=== PATIENT | male | born 1970 | race Caucasian/White ===

== ENCOUNTER 2020-12-26 20:22 | Emergency (ER) | payer MEDICARE, MEDICAID, SELFPAY ==
--- NOTE | ~2020-12-26 | CT_ITS ---
EXAMINATION: CT ABDOMEN AND PELVIS WITHOUT CONTRAST CLINICAL INFORMATION: Hematuria with abdominal pain COMPARISON: 10/25/2019 TECHNIQUE: Multidetector volumetric imaging was performed from the superior aspect of the liver through the pubic symphysis. Sagittal and coronal reformatted images were obtained on the technologist's workstation. This CT examination was performed using dose optimization techniques as appropriate, variously including the following: *Automated exposure control *Adjustment of mA and/or kV according to patient size (this includes techniques or standardized protocols for targeted exams where dose is matched to indication/reason for exam; i.e. extremities or head) *Use of iterative reconstruction technique DLP: 1040 mGy-cm FINDINGS: The lack of intravenous contrast limits evaluation of the solid visceral organs including the liver, spleen, pancreas, and kidneys. There is also streak artifact from hardware and the patient was scanned with his arms over his chest casting more artifact. LUNG BASES: Right lower lobe atelectasis. Bilateral gynecomastia. Healed remote bilateral rib fractures. LIVER, GALLBLADDER, AND BILIARY TREE: Limited non-contrast evaluation is normal. No gross focal hepatic lesion. Normal liver size and contour. No gross biliary ductal dilation. The gallbladder is unremarkable with no evidence of radiopaque gallstones, gallbladder wall thickening, or obvious pericholecystic inflammatory changes. PANCREAS: Limited non-contrast evaluation is normal. No jean paul-pancreatic fluid. SPLEEN: Limited non-contrast evaluation is normal. ADRENAL GLANDS: Normal; no adrenal mass. KIDNEYS AND URETERS: Limited non-contrast evaluation is normal. No hydronephrosis, hydroureter, or calculi seen. No perinephric stranding. GASTROINTESTINAL TRACT: Small bowel and colon are non-dilated. No bowel wall thickening. No pericolonic inflammatory changes to suggest colitis or diverticulitis. ABDOMINAL WALL: No hernia seen. LYMPH NODES: No pathologically enlarged lymph nodes in the abdomen or pelvis. VASCULAR: Normal caliber abdominal aorta. BLADDER: Unremarkable. PELVIC VISCERA: Normal noncontrast appearance of the prostate and seminal vesicles. There are left pelvic phleboliths. OSSEOUS STRUCTURES: Extensive degenerative changes of the thoracolumbar spine with multilevel fusion hardware. Status post ORIF of the right hip. Chronic right inferior pubic ramus fracture. CT/CT abdomen pelvis wo con IMPRESSION: No radiopaque urolithiasis. Limited study. No etiology for hematuria or abdominal pain.
[2020-12-26 20:30] VITALS: BP 132/79; PULSE 100; PULSE 95; RESP 20; TEMP 36.9; O2SAT 97; O2SAT 98; BMI 25.8
--- NOTE | 2020-12-26 21:27 | ED.MALEGU ---
HPI - Male Genitourinary General Chief complaint: Urogenital-Male Stated complaint: BLOOD IN URINE Time Seen by Provider: 12/26/20 21:26 Source: patient, RN notes reviewed, old records reviewed and other (Caregiver) Mode of arrival: EMS Limitations: physical limitation History of Present Illness HPI Narrative: This is a 50-year-old male who live in a correction with past medical history of cerebral palsy, seizure, with communication barrier due to mental retardation, patient came in from a correction reportedly has been having bloody urine with abdominal pain x1 day, no other associated symptoms is reported, nothing relieves the pain or make it worse is reported either, reviewing history patient never had a similar presentation before. Patient in the emergency department appeared comfortable talkative appear at his baseline known to our ED staff. Related Data Allergies Allergy/AdvReac Type Severity Reaction Status Date / Time lorazepam [From ATIVAN] Allergy Unknown RASH Verified 12/26/20 20:40 Review of Systems Review of Systems: All other systems are reviewed and are negative Constitutional: Reports as per HPI and Reports no additional constitutional complaints Eyes: Reports as per HPI and Reports no additional eye complaints Reports system reviewed and no additional complaints, except as documented Cardiovascular: Reports as per HPI and Reports no additional cardiovascular complaints Respiratory: Reports as per HPI and Reports no additional respiratory complaints Gastrointestinal: Reports as per HPI and Reports no additional gastrointestinal complaints Genitourinary: Reports no additional female genitourinary complaints Musculoskeletal: Reports no additional musculoskeletal complaints Skin/Breast: Reports system reviewed and no additional complaints, except as docu Psychiatric: Reports no additional psychiatric complaints Endocrine: Reports no additional endocrine complaints Hematologic/Lymphatic: Reports no additional hematologic/lymphatic complaints Allergic/Immunologic: Reports no additional allergic/immunologic complaints Reports system reviewed and no additional complaints, except as documented and Reports Abnormal speech present [facility] Past Medical History Medical History Anxiety and depression Arthritis Cerebral palsy Constipation Depressive disorder Dysphagia Generalized anxiety disorder Hyperlipemia Hypernatremia Mood disorder Ocular motor apraxia syndrome Osteoarthritis Osteoporosis Psoriasis Scoliosis Seizure disorder SIADH (syndrome of inappropriate ADH production) Vitamin D deficiency Surgical History History of spinal fusion Social History Social History Alcohol intake: never Smoking Status: Never smoker Smoked in Last 30 Days: No Use of substances other than those prescribed or required for medical reasons: No Advance Directives: No Physical Exam Vital Signs: Vital Signs: Last Vital Signs Temp 98.2 F 12/26/20 22:46 Pulse 87 12/26/20 22:46 Resp 18 12/26/20 22:46 BP 147/78 H 12/26/20 22:46 Pulse Ox 100 12/26/20 22:46 Body Mass Index 25.8 Vital signs have been reviewed as normal and appeared to be correct. Blood pressure in the high range. Heart rate normal. Respiration rate normal. Temperature normal. Oxygen saturation normal. Appearance: Alert.No acute distress. Head: Normal external exam. Normocephalic. Atraumatic. No Kowalski signs noted. No raccoon eyes noted Eyes: PERRLA. EOMI. Conjunctiva and sclera normal. Eyelids normal. ENT: EAC normal. TM's Normal. Pharynx normal. Uvula midline. Moist mucous membranes. No trismus noted. No drooling noted. No muffled voice noted. Neck: Normal inspection. Neck supple. FROM. No adenopathy. Thyroid Normal. No meningeal signs. No neck mass noted. CVS: Normal heart rate and rhythm. Heart sound normal. No murmurs noted. Pulses normal throughout. Respiratory: No respiratory distress. Painless inspiration. Breath sounds normal. No wheezes/rales/rhonchi noted. Chest nontender. No accessory muscle usage noted or decreased air movement noted. Abdomen: Soft and nontender. Bowel sounds normal in all 4 quadrants. No distention noted. No organomegaly noted. No visible injury noted. Back: No CVA tenderness. Full range of motion noted. Skin: Skin warm and dry. Normal skin color. Normal skin turgor. No rashes/lesions/lacerations noted. Extremities: No lower extremity edema. Extremities exhibit normal range of motion. Extremities nontender. Neuro: No motor deficit. No sensory deficit. Reflexes normal. 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 Urine was obtained using straight cath urine showed no RBCs, CT of the abdomen and pelvis confirmed no urogenital obstructive pathology. Patient in the emergency room is acting at his normal baseline no acute distress, will discharge the patient back to detention with follow-up with urologist if symptoms reoccur. MDM - Male Genitourinary Lab Data Attestation: I reviewed the patient's lab results. Result diagrams: 12/26/20 21:55 12/26/20 21:55 Labs: Lab Results 12/26/20 12/26/20 12/26/20 Range/Units 21:55 21:55 22:03 WBC 6.4 (4.8-10.8) X10*3/uL RBC 4.30 L (4.60-5.80) X10*6/uL Hgb 14.3 (14.0-18.0) g/dl Hct 41.5 L (42-52) % MCV 96.5 (80-98) fL MCH 33.3 H (27.0-33.0) pg MCHC 34.5 (31.0-36.0) g/dl RDW 12.8 (11.0-16.0) % Plt Count 189 (160-400) X10*3/uL MPV 10.3 (9.4-12.4) fL Immature Gran % (Auto) 0.2 (0.0-0.4) % Neut % (Auto) 44.3 L (45-73) % Lymph % (Auto) 41.7 H (20-40) % [place] % (Auto) 11.9 H (2-11) % Eos % (Auto) 1.6 (0-4) % Baso % (Auto) 0.3 (0-2) % Lymph # (Auto) 2.7 (1.2-4.9) X10*3/uL [place] # (Auto) 0.8 (0.1-1.2) X10*3/uL Eos # (Auto) 0.1 (0.0-0.4) X10*3/uL Baso # (Auto) 0.0 (0.0-0.2) X10*3/uL Abs Immat Gran (auto) 0.01 (0.00-0.03) X10*3/uL Absolute Neuts (auto) 2.8 (2.0-8.3) X10*3/uL Absolute Nucleated RBC 0.000 (0.0-0.012) X10*3/uL Nucleated RBC % (auto) 0.0 (0.0-0.2) /100WBC Sodium 134 L (135-145) mmol/L Potassium 4.4 (3.3-5.1) mmol/L Chloride 100 (96-108) mmol/L Carbon Dioxide 23 (22-29) mmol/L Anion Gap 15 (12-20) BUN 15 (9-16) mg/dL Creatinine 0.67 (0.5-1.4) mg/dL Estim Creat Clear Calc 129.0 Estimated GFR > 60 Random Glucose 98 (60-115) mg/dL Calcium 8.5 (8.4-10.2) mg/dL Total Bilirubin 0.2 (0.0-1.0) mg/dL Direct Bilirubin < 0.2 (0.0-0.5) mg/dL AST 20 (5-37) U/L ALT 13 (0-40) U/L Alkaline Phosphatase 62 (39-117) U/L Total Protein 7.0 (6.5-8.0) g/dL Albumin 3.9 (3.5-5.0) g/dL Lipase 80 H (8-78) U/L Urine Color YELLOW Urine Appearance CLEAR Urine pH 7.0 (5.0-8.0) Ur Specific [place] 1.015 (1.005-1.025) Urine Protein NEG (NEG-TRACE) MG/DL Urine Glucose (UA) NEG (NEG) MG/DL Urine Ketones NEG (NEG) MG/DL Urine Blood NEG (NEG) Urine Nitrite NEG (NEG) Ur Leukocyte Esterase NEG (NEG) Imaging Data CT scan - abdomen: Radiologist's impression: No radiopaque urolithiasis. Limited study. No etiology for hematuria or abdominal pain. Discharge Plan Discharge Clinical Impression: Encounter for medical screening examination Patient Disposition: Home, Self-Care Instructions: Normal Exam (ED) Referrals: Parish Kendall MD [Physician] - 2 days
[2020-12-26] MEDS: 0.9 % Sodium Chloride 1,000 ML 999 ML IVCONT (21:59)
[2020-12-26 22:00] LABS: MANUAL DIFF FLAG NO
[2020-12-26 22:04] LABS: Basophils Percent Auto 0.3 % (0-2); Eosinophils Absolute Auto 0.1 X10*3/uL (0.0-0.4); Eosinophils Percent Auto 1.6 % (0-4); Hematocrit 41.5 % (42-52); Hemoglobin 14.3 g/dl (14.0-18.0); Imm Gran Abs Auto 0.01 X10*3/uL (0.00-0.03); Imm Gran Pct Auto 0.2 % (0.0-0.4); Lymphocytes Absolute Auto 2.7 X10*3/uL (1.2-4.9); Lymphocytes Percent Auto 41.7 % (20-40); Mean Corpuscular HGB Conc 34.5 g/dl (31.0-36.0); Mean Corpuscular Hemoglobin 33.3 pg (27.0-33.0); Mean Corpuscular Volume 96.5 fL (80-98); Mean Platelet Volume 10.3 fL (9.4-12.4); Monocytes Absolute Auto 0.8 X10*3/uL (0.1-1.2); Monocytes Percent Auto 11.9 % (2-11); Neutrophils Absolute Auto 2.8 X10*3/uL (2.0-8.3); Neutrophils Percent Auto 44.3 % (45-73); Platelet Count 189 X10*3/uL (160-400); Red Cell Distribution Width 12.8 % (11.0-16.0); White Blood Count 6.4 X10*3/uL (4.8-10.8)
[2020-12-26 22:14] LABS: Glucose Urine UA NEG (NEG); Leukocyte Esterase Urine NEG (NEG); Nitrite Urine NEG (NEG); Specific Gravity - Urine 1.015 (1.005-1.025); Urine Blood NEG (NEG); Urine Ketones NEG (NEG); Urine Protein NEG (NEG-TRACE)
[2020-12-26 22:15] LABS: Appearance Urine CLEAR; Color Urine YELLOW
[2020-12-26 22:36] LABS: Alanine Aminotransferase 13 U/L (0-40); Albumin Level 3.9 g/dL (3.5-5.0); Alkaline Phosphatase 62 U/L (39-117); Anion Gap 15 (12-20); Aspartate Amino Transferase 20 U/L (5-37); Bilirubin Direct < 0.2 mg/dL (0.0-0.5); Bilirubin Total 0.2 mg/dL (0.0-1.0); Blood Urea Nitrogen 15 mg/dL (9-16); Calcium 8.5 mg/dL (8.4-10.2); Carbon Dioxide 23 mmol/L (22-29); Chloride 100 mmol/L (96-108); Estimated Glomerular Filt Rate > 60; Glucose Random 98 mg/dL (60-115); Lipase 80 U/L (8-78); Potassium 4.4 mmol/L (3.3-5.1); Sodium 134 mmol/L (135-145)
[2020-12-26 22:46] VITALS: BP 147/78; PULSE 87; RESP 18; TEMP 36.8; O2SAT 100
--- NOTE | 2020-12-26 23:50 | PC.NURSE ---
PT CHANGED INTO HIS OWN CLOTHES. PLACED IN WHEELCHAIR TO TRANSFER.[facility] CALLED FOR DISCHARGE-[facility] CALLED.
== END 2020-12-27 00:17 | disposition home or self-care (01) ==
PROVIDERS: Emergency Provider Emergency Medicine
DX: R31.9 Hematuria, unspecified (principal); R10.9 Unspecified abdominal pain; Z79.899 Other long term (current) drug therapy
CPT/HCPCS: 36415; 74176; 80048; 80076; 81003; 83690; 85025; 96360; 99284

== ENCOUNTER → 2021-01-01 11:39 | Outpatient (BNVA) | payer MEDICARE, MEDICAID, SELFPAY | PROVIDERS: Visit Provider Urology | CPT/HCPCS: Q3014 ==

== ENCOUNTER → 2021-07-06 10:13 | Outpatient (BNVA) | payer MEDICARE, MEDICAID, SELFPAY | PROVIDERS: Visit Provider Urology | DX: R31.0 Gross hematuria (principal) | CPT/HCPCS: 52000; 99212 ==

== ENCOUNTER → 2021-09-07 09:35 | Outpatient (BNVA) | payer MEDICARE, MEDICAID, SELFPAY | PROVIDERS: Visit Provider Urology | DX: N40.1 Benign prostatic hyperplasia with lower urinary tract symptoms (principal); N13.8 Other obstructive and reflux uropathy | CPT/HCPCS: 51798; 99212 ==

== ENCOUNTER → 2022-03-11 09:57 | Outpatient (BNVA) | payer MEDICARE, MEDICAID, SELFPAY | PROVIDERS: Visit Provider Urology | DX: N40.1 Benign prostatic hyperplasia with lower urinary tract symptoms (principal); N13.8 Other obstructive and reflux uropathy | CPT/HCPCS: Q3014 ==

== ENCOUNTER → 2022-09-13 14:30 | Outpatient (BNVA) | payer MEDICARE, MEDICAID, SELFPAY | PROVIDERS: Visit Provider Urology | DX: N40.1 Benign prostatic hyperplasia with lower urinary tract symptoms (principal); N13.8 Other obstructive and reflux uropathy; R31.0 Gross hematuria | CPT/HCPCS: Q3014 ==

== ENCOUNTER → 2023-03-16 11:00 | Outpatient (BNVA) | payer MEDICARE, MEDICAID, SELFPAY | PROVIDERS: Visit Provider Urology | DX: N40.1 Benign prostatic hyperplasia with lower urinary tract symptoms (principal); N13.8 Other obstructive and reflux uropathy | CPT/HCPCS: 51798; 99212 ==

== ENCOUNTER 2023-09-13 09:08 | Outpatient (AMB) | payer MEDICARE, MEDICAID, SELFPAY ==
--- NOTE | 2023-09-13 09:08 | MHC.OFFVIS ---
Intake Intake Visit Reasons: 6m follow up Intake Note: Patient is Present for Telephone Follow Up Urology Med: Finasteride, Tamsulosin Antibiotic Allergy: None Blood Thinner: None Pharamcy: Center Allergies lorazepam [From ATIVAN] Allergy (Unknown, Verified 09/13/23 09:10) RASH HPI HPI Comments History of Present Illness Details Corby is a pleasant male. He is a resident of [facility]. He is here for the following urologic conditions - gross hematuria - lower urinary tract symptoms - weak stream and frequent urination Telemedicine Evaluation 15 min Consultation [employer] Eufemia Video attempted Stable with minimal incontinence episodes Continue current medications Continue current fluid management Lower urinary tract symptoms Improved with medications Last PVR 0 Remains on combination therapy with finasteride and tamsulosin Timed voiding Q 3 that is effective Gross hematuria Presentation emergency room - May 2021 In [facility] Imaging - 01/10 CT scan normal Initial presentation with nocturia and noted to have frequent urination Cystoscopy - 07/10 [facility] Medical History Ocular motor apraxia syndrome Psoriasis Depressive disorder Mood disorder Generalized anxiety disorder Anxiety and depression Vitamin D deficiency SIADH (syndrome of inappropriate ADH production) Hyperlipemia Hypernatremia Scoliosis Osteoporosis Osteoarthritis Arthritis Dysphagia Constipation Seizure disorder Cerebral palsy Surgical History History of spinal fusion Social History Alcohol intake: never Review of Systems Const All systems reviewed & are unremarkable except as noted in HPI and below Reports no additional complaints Resp Reports no additional complaints GI Reports no additional complaints Reports as per HPI Musc Reports no additional complaints Physical Exam Telemedicine evaluation Appropriate responses Regular breathing rate and rhythm HEENT Head: Yes normal to inspection Ears: hearing grossly normal bilaterally Eyes General: appearance normal, both eyes and all related structures Neck Neck: Yes normal visual inspection Chest Chest palpation & inspection: normal inspection of the chest Resp Effort & Inspection: normal respiratory effort and able to speak in complete sentences Assessment & Plan Assessment & Plan (1) BPH w urinary obs/LUTS: Code(s): N40.1 - Benign prostatic hyperplasia with lower urinary tract symptoms; N13.8 - Other obstructive and reflux uropathy (2) Gross hematuria: Code(s): R31.0 - Gross hematuria Plan Six month follow-up Medications: Refilled finasteride 5 mg PO DAILY 90 tabs 3RF 90 days N13.8 - Other obstructive and reflux uropathy, N40.1 - Benign prostatic hyperplasia with lower urinary tract symptoms tamsulosin 0.4 mg PO BEDTIME 90 caps 3RF 90 days N13.8 - Other obstructive and reflux uropathy, N40.1 - Benign prostatic hyperplasia with lower urinary tract symptoms Patient Instructions: Imaging studies, laboratory and physical exam results were discussed and reviewed in detail. No major barriers to patient understanding were identified. An opportunity to ask questions regarding the treatment plan was provided. All questions were answered. The patient expressed understanding and agreement with the above treatment plan. The patient is aware they should contact our office by phone for worsening of their current condition or the appearance of new urologic symptoms. Compliance is encouraged with any medications and followup testing that is ordered. It is a privilege to participate in the urologic care of your patient. If you have any questions or concerns regarding treatment for the above conditions, or other urologic issues, please do not hesitate to contact me. The office telephone contact is [phone]. This note is constructed using voice recognition software. While every effort has been made to ensure accuracy plumber cub errors may have been included. Yours sincerely, Dr Parish Kendall MD, [facility] - Urology Providers of Expert, Compassionate Care for the Genitourinary System Telehealth Telehealth Location of provider rendering services: practice address Location of patient: address on file Patient Identification confirmed using: Name, : Yes Telehealth method: voice only Patient verbally consented to treatment: Yes Patient verbally consented to billing insurance company: Yes Patient informed of any privacy concerns related to visit: Yes Coding Level of Care Code Tele Est Pt Level 3 (81318) Diagnoses BPH w urinary obs/LUTS N40.1; N13.8 Gross hematuria R31.0
== END 2023-09-13 13:58 | disposition home or self-care (01) ==
LOC: HO.HUSH 09:08
PROVIDERS: PCP Internal Medicine; Visit Provider Urology
DX: N40.1 Benign prostatic hyperplasia with lower urinary tract symptoms (principal); N13.8 Other obstructive and reflux uropathy; R31.0 Gross hematuria
CPT/HCPCS: 99442

== ENCOUNTER → 2023-09-13 09:08 | Outpatient (BNVA) | payer MEDICARE, MEDICAID, SELFPAY | PROVIDERS: PCP Internal Medicine; Visit Provider Urology ==

== ENCOUNTER 2024-03-14 09:48 | Outpatient (AMB) | payer MEDICARE, MEDICAID, SELFPAY ==
--- NOTE | 2024-03-14 09:57 | MHC.OFFVIS ---
Intake Visit Reasons: 6 mo follow up Intake Note: Patient is Present for Follow Up Urology Medication: Finasteride, Tamsulosin Antibiotic Allergies:None Blood Thinners:None Allergies lorazepam [From ATIVAN] Allergy (Unknown, Verified 03/14/24 09:59) RASH HPI Comments Details: Corby is a pleasant male. He is a resident [facility]. He is here for the following urologic conditions - gross hematuria - lower urinary tract symptoms - weak stream and frequent urination Accompanied by staff from [facility] PVR low Combination therapy Stable with minimal incontinence episodes Continue current medications Continue current fluid management Continue timed voiding Lower urinary tract symptoms Improved with medications Last PVR 0 Remains on combination therapy with finasteride and tamsulosin Timed voiding Q 3 that is effective Gross hematuria Presentation emergency room - May 2021 In [facility] Imaging - 01/10 CT scan normal Initial presentation with nocturia and noted to have frequent urination Cystoscopy - 07/10 [facility] Medical History Ocular motor apraxia syndrome Psoriasis Depressive disorder Mood disorder Generalized anxiety disorder Anxiety and depression Vitamin D deficiency SIADH (syndrome of inappropriate ADH production) Hyperlipemia Hypernatremia Scoliosis Osteoporosis Osteoarthritis Arthritis Dysphagia Constipation Seizure disorder Cerebral palsy Surgical History History of spinal fusion Social History Alcohol intake: never Review of Systems Const Denies chills and Denies fever(s) Card Reports no additional complaints and Denies syncope Resp Denies cough GI Denies abdominal pain and Denies heartburn Reports as per HPI and Denies change in libido Neuro Denies syncope Psych Denies change in libido Endo Denies change in libido Physical Exam Const General: cooperative, healthy appearing, comfortable and no acute distress Orientation/consciousness: patient oriented x3 HEENT Face and sinus: Yes normal facial exam Mouth: moist mucous membranes Neck Neck: Yes normal visual inspection, Yes full ROM and Yes trachea midline Chest Chest palpation & inspection: normal inspection of the chest Resp Effort & Inspection: normal respiratory effort, able to speak in complete sentences and no respiratory distress GI Inspection: Yes normal to inspection Back/Spine/Pelvis Cervical Spine: normal cervical lordosis Thoracic/Lumbar Spine: thoracic and lumbar spine normal to inspection Skin General skin exam: no rashes or lesions noted Neuro General: patient oriented x3, gait normal, tone normal and moves all extremities Extrem General: Yes normal to inspection and Yes capillary refill normal Assessment & Plan Assessment & Plan (1) BPH w urinary obs/LUTS: Code(s): N40.1 - Benign prostatic hyperplasia with lower urinary tract symptoms; N13.8 - Other obstructive and reflux uropathy Category: Medical Plan Six month follow-up tele Patient Instructions: Imaging studies, laboratory and physical exam results were discussed and reviewed in detail. No major barriers to patient understanding were identified. An opportunity to ask questions regarding the treatment plan was provided. All questions were answered. The patient expressed understanding and agreement with the above treatment plan. The patient is aware they should contact our office by phone for worsening of their current condition or the appearance of new urologic symptoms. Compliance is encouraged with any medications and followup testing that is ordered. It is a privilege to participate in the urologic care of your patient. If you have any questions or concerns regarding treatment for the above conditions, or other urologic issues, please do not hesitate to contact me. The office telephone contact is [phone]. This note is constructed using voice recognition software. While every effort has been made to ensure accuracy teacher citizenship errors may have been included. Yours sincerely, Dr Parish Kendall MD, [facility] - Urology Providers of Expert, Compassionate Care for the Genitourinary System Coding Level of Care Code Est Pt Level 3 (10379) Complex EM visit Add On G2211 Diagnoses BPH w urinary obs/LUTS N40.1; N13.8
== END 2024-03-14 10:30 | disposition home or self-care (01) ==
PROVIDERS: PCP Internal Medicine; Visit Provider Urology
DX: N40.1 Benign prostatic hyperplasia with lower urinary tract symptoms (principal); N13.8 Other obstructive and reflux uropathy
CPT/HCPCS: 99213; G2211

== ENCOUNTER → 2024-03-14 09:48 | Outpatient (BNVA) | payer MEDICARE, MEDICAID, SELFPAY | PROVIDERS: PCP Internal Medicine; Visit Provider Urology | DX: N40.1 Benign prostatic hyperplasia with lower urinary tract symptoms (principal); N13.8 Other obstructive and reflux uropathy | CPT/HCPCS: 99212 ==

== ENCOUNTER 2024-09-13 10:25 | Outpatient (AMB) | payer MEDICARE, MEDICAID, SELFPAY ==
--- NOTE | 2024-09-13 10:26 | MHC.OFFVIS ---
Intake Visit Reasons: 6m follow up Intake Note: Patient is present for BPH Telephone follow up Urology Med: Finasteride, Tamsulosin Antibiotic Allergy: None Blood Thinner: None Jewelry Sales Associate Required: No Summer Camp Counselor: Summer Camp Counselor Present Accompanied by: nursing staff Allergies lorazepam [From ATIVAN] Allergy (Unknown, Verified 09/13/24 10:26) RASH HPI Comments Details: Corby is a pleasant male. He is a [facility]. He is here for the following urologic conditions - gross hematuria - lower urinary tract symptoms - weak stream and frequent urination Telemedicine Evaluation 15 min Consultation Doximity Eufemia Video attempted By report from caregiver everything has remained stable Stable with minimal incontinence episodes Continue current medications Continue current fluid management Continue timed voiding Lower urinary tract symptoms Improved with medications Last PVR 0 Remains on combination therapy with finasteride and tamsulosin Timed voiding Q 3 that is effective Gross hematuria Presentation emergency room - May 2021 In [facility] Imaging - 01/10 CT scan normal Initial presentation with nocturia and noted to have frequent urination Cystoscopy - 07/10 [facility] Medical History Ocular motor apraxia syndrome Psoriasis Depressive disorder Mood disorder Generalized anxiety disorder Anxiety and depression Vitamin D deficiency SIADH (syndrome of inappropriate ADH production) Hyperlipemia Hypernatremia Scoliosis Osteoporosis Osteoarthritis Arthritis Dysphagia Constipation Seizure disorder Cerebral palsy Surgical History History of spinal fusion Social History Alcohol intake: never Review of Systems Const All systems reviewed & are unremarkable except as noted in HPI and below Reports no additional complaints Resp Reports no additional complaints GI Reports no additional complaints Reports as per HPI Musc Reports no additional complaints Physical Exam Telemedicine evaluation Appropriate responses Regular breathing rate and rhythm HEENT Head: Yes normal to inspection Ears: hearing grossly normal bilaterally Eyes General: appearance normal, both eyes and all related structures Neck Neck: Yes normal visual inspection Chest Chest palpation & inspection: normal inspection of the chest Resp Effort & Inspection: normal respiratory effort and able to speak in complete sentences Telehealth Telehealth Telehealth Platform: [employer] Location of provider rendering services: practice address Location of patient: address on file Patient Identification confirmed using: Name, : Yes Telehealth method: voice only Patient verbally consented to treatment: Yes Patient verbally consented to billing insurance company: Yes Patient informed of any privacy concerns related to visit: Yes Minutes spent on Phone/Video with Pt.: 15 Assessment & Plan Assessment & Plan (1) BPH w urinary obs/LUTS: Code(s): N40.1 - Benign prostatic hyperplasia with lower urinary tract symptoms; N13.8 - Other obstructive and reflux uropathy Category: Medical Plan Six-month follow-up office Patient Instructions: Imaging studies, laboratory and physical exam results were discussed and reviewed in detail. No major barriers to patient understanding were identified. An opportunity to ask questions regarding the treatment plan was provided. All questions were answered. The patient expressed understanding and agreement with the above treatment plan. The patient is aware they should contact our office by phone for worsening of their current condition or the appearance of new urologic symptoms. Compliance is encouraged with any medications and followup testing that is ordered. It is a privilege to participate in the urologic care of your patient. If you have any questions or concerns regarding treatment for the above conditions, or other urologic issues, please do not hesitate to contact me. The office telephone contact is [phone]. This note is constructed using voice recognition software. While every effort has been made to ensure accuracy adjustment clerk errors may have been included. Yours sincerely, Dr Parish Kendall MD, [facility] - Urology Providers of Expert, Compassionate Care for the Genitourinary System Coding Level of Care Code Tele Est Pt Level 3 (45760) Diagnoses BPH w urinary obs/LUTS N40.1; N13.8
== END 2024-09-13 11:25 | disposition home or self-care (01) ==
LOC: HO.HUSH 10:25
PROVIDERS: PCP Internal Medicine; Visit Provider Urology
DX: N40.1 Benign prostatic hyperplasia with lower urinary tract symptoms (principal); N13.8 Other obstructive and reflux uropathy
CPT/HCPCS: 99442

== ENCOUNTER → 2024-09-13 10:25 | Outpatient (BNVA) | payer MEDICARE, MEDICAID, SELFPAY | PROVIDERS: PCP Internal Medicine; Visit Provider Urology ==

== ENCOUNTER 2025-03-18 10:41 | Outpatient (AMB) | payer MEDICARE, MEDICAID, SELFPAY ==
--- NOTE | 2025-03-18 10:43 | MHC.OFFVIS ---
Intake Visit Reasons: 6m/PVR Intake Note: Patient is present for 6M/PVR Urology Medication:TAMSULOSIN,FINASTERIDE Antibiotic Allergy:NONE Blood Thinner:NONE Todays PVR:0ML'S Hoop Riveter Required: No Allergies lorazepam [From ATIVAN] Allergy (Unknown, Verified 03/18/25 10:44) RASH HPI Comments Details: Corby is a pleasant male. He is a [facility] He is here for the following urologic conditions - gross hematuria - lower urinary tract symptoms - weak stream and frequent urination By report from caregiver everything has remained stable UA today normal Stable with minimal incontinence episodes Continue current medications Continue current fluid management Continue timed voiding Prescriptions refilled through [facility] Lower urinary tract symptoms Improved with medications Last PVR 0 Remains on combination therapy with finasteride and tamsulosin Timed voiding Q 3 that is effective Gross hematuria Presentation emergency room - May 2021 In [facility] Imaging - 01/10 CT scan normal Initial presentation with nocturia and noted to have frequent urination Cystoscopy - 07/10 [facility] Medical History Ocular motor apraxia syndrome Psoriasis Depressive disorder Mood disorder Generalized anxiety disorder Anxiety and depression Vitamin D deficiency SIADH (syndrome of inappropriate ADH production) Hyperlipemia Hypernatremia Scoliosis Osteoporosis Osteoarthritis Arthritis Dysphagia Constipation Seizure disorder Cerebral palsy Surgical History History of spinal fusion Social History Alcohol intake: never Review of Systems Const Denies chills and Denies fever(s) Card Reports no additional complaints and Denies syncope Resp Denies cough GI Denies abdominal pain and Denies heartburn Reports as per HPI and Denies change in libido Neuro Denies syncope Psych Denies change in libido Endo Denies change in libido Physical Exam Const General: cooperative, healthy appearing, comfortable and no acute distress Orientation/consciousness: patient oriented x3 HEENT Face and sinus: Yes normal facial exam Mouth: moist mucous membranes Neck Neck: Yes normal visual inspection, Yes full ROM and Yes trachea midline Chest Chest palpation & inspection: normal inspection of the chest Resp Effort & Inspection: normal respiratory effort, able to speak in complete sentences and no respiratory distress GI Inspection: Yes normal to inspection Back/Spine/Pelvis Cervical Spine: normal cervical lordosis Thoracic/Lumbar Spine: thoracic and lumbar spine normal to inspection Skin General skin exam: no rashes or lesions noted Neuro General: patient oriented x3, gait normal, tone normal and moves all extremities Extrem General: Yes normal to inspection and Yes capillary refill normal Office Procedures Post Void Residual Post Residual Void Post Void Residual (PVR): 0 [id number]-Jwyo Void Residual by ultrasound Results AMB Urinalysis, Automated UA Leukoctes 0 Jude/uL Last Edit by MARCK Ochoa on 03/18/25 11:06 UA Nitrite Negative Last Edit by MARCK Ochoa on 03/18/25 11:06 UA Urobilinogen 0.2 mg/dL Last Edit by MARCK Ochoa on 03/18/25 11:06 UA Protein 0 mg/dL Last Edit by Agusto Dailey CCM on 03/18/25 11:06 UA pH 7.5 Last Edit by Agusto Dailey CCM on 03/18/25 11:06 UA Blood 0 Tae/uL Last Edit by Agusto Dailey CCM on 03/18/25 11:06 UA Specific [place] 1.010 Last Edit by MARCK Ochoa on 03/18/25 11:06 UA Ketone Negative Last Edit by MARCK Ochoa on 03/18/25 11:06 UA Bilirubin 0 mg/dL Last Edit by Agusto Dailey CCM on 03/18/25 11:06 UA Glucose 0 mg/dL Last Edit by Agusto Dailey [facility] on 03/18/25 11:06 Results Reviewed Results Reviewed: Laboratory Last Values Urine pH (Auto) 7.5 03/18/25 11:05 Specific [place] (Auto) 1.010 03/18/25 11:05 Urine Protein (Auto) 0 mg/dL 03/18/25 11:05 Glucose (UA)(Auto) 0 mg/dL 03/18/25 11:05 Urine Ketones (Auto) Negative 03/18/25 11:05 Urine Blood (Auto) 0 Tae/uL 03/18/25 11:05 Urine Nitrite (Auto) Negative 03/18/25 11:05 Urine Bilirubin (Auto) 0 mg/dL 03/18/25 11:05 Urine Urobilinogen (Auto) 0.2 mg/dL 03/18/25 11:05 Leukocyte Esterase (Auto) 0 Jude/uL 03/18/25 11:05 Assessment & Plan Assessment & Plan (1) BPH w urinary obs/LUTS: Code(s): N40.1 - Benign prostatic hyperplasia with lower urinary tract symptoms; N13.8 - Other obstructive and reflux uropathy Category: Medical Plan Six-month follow-up Orders: Orders Prostate Specific Antigen 6 Months N13.8 - Other obstructive and reflux uropathy, N40.1 - Benign prostatic hyperplasia with lower urinary tract symptoms AMB Urinalysis Automated Today Z13.9 - Encounter for screening, unspecified Medications: Refilled finasteride 5 mg PO DAILY 90 days 90 tabs 11RF N13.8 - Other obstructive and reflux uropathy, N40.1 - Benign prostatic hyperplasia with lower urinary tract symptoms tamsulosin 0.4 mg PO BEDTIME 90 days 90 caps 11RF N13.8 - Other obstructive and reflux uropathy, N40.1 - Benign prostatic hyperplasia with lower urinary tract symptoms finasteride 5 mg PO DAILY 90 days 90 tabs 11RF N13.8 - Other obstructive and reflux uropathy, N40.1 - Benign prostatic hyperplasia with lower urinary tract symptoms tamsulosin 0.4 mg PO BEDTIME 90 days 90 caps 11RF N13.8 - Other obstructive and reflux uropathy, N40.1 - Benign prostatic hyperplasia with lower urinary tract symptoms tamsulosin 0.4 mg PO BEDTIME 90 days 90 caps 11RF N13.8 - Other obstructive and reflux uropathy, N40.1 - Benign prostatic hyperplasia with lower urinary tract symptoms finasteride 5 mg PO DAILY 90 days 90 tabs 11RF N13.8 - Other obstructive and reflux uropathy, N40.1 - Benign prostatic hyperplasia with lower urinary tract symptoms Patient Instructions: This note is constructed using voice recognition software. While every effort has been made to ensure accuracy form press operator errors may have been included. Imaging studies, laboratory and physical exam results were discussed and reviewed in detail. No major barriers to patient understanding were identified. An opportunity to ask questions regarding the treatment plan was provided. All questions were answered. The patient expressed understanding and agreement with the above treatment plan. The patient is aware they should contact our office by phone for worsening of their current condition or the appearance of new urologic symptoms. Compliance is encouraged with any medications and followup testing that is ordered. It is a privilege to participate in the urologic care of your patient. If you have any questions or concerns regarding treatment for the above conditions, or other urologic issues, please do not hesitate to contact me. The office telephone contact is [phone]. Sincerely, Dr Parish Kendall MD, [facility] - Urology Compassionate Specialist Care for the Genitourinary System Coding Level of Care Code Est Pt Level 3 (33915) Complex EM visit Add On G2211 Diagnoses BPH w urinary obs/LUTS N40.1; N13.8 CPT Codes Post Residual Void - PVR CPT Code: 67901-Ypeo Void Residual by ultrasound ([id number])
--- OUTSIDE RECORDS SUMMARY | 2025-03-18 12:21 | XMS_ITS | Data Portability ---
Author Organization [facility] Address [address] [place] [address] Care Team Providers Care Manager Medicare Name Role Phone SOFIA CHAN Primary Care Provider SOFIA CHAN Referring Provider VIRY POLLOCK Primary Care Provider Assessment No assessment recorded. Plan of Treatment Reminders Order Date Submit Date Provider Last Modified By Organization Details Last Modified Time Details Appointments [facility] 20[facility] 11:30A M Nasrin Torres MD Not available Not available Not available Lab CMP, serum or plasma 2023 025 [facility], [address] [place] [address], [address], 05/06/2024 12:05:11 vitamin D, 25-hydro xy, total, serum 2023 025 [facility], [address], [address], 05/06/2024 12:05:11 PTH (parathy roid hormone) , intact, serum or plasma 2023 025 [facility], [address], [place], [address], 05/06/2024 12:05:11 magnesiu m, serum or plasma 2023 025 [email or web address] [facility], [address], [address], [place], [address], 05/06/2024 12:05:11 BMP, serum or plasma 2023 024 [email or web address] Not available 09/18/2024 10:32:02 CMP, serum or plasma 2022 024 [email or web address] [id number] Not available 06/11/2024 08:23:52 vitamin D, 25-hydro xy, total, serum 2022 024 [email or web address] [id number] Not available 06/11/2024 08:23:36 PTH (parathy roid hormone) , intact, serum or plasma 2022 024 [email or web address] Not available 03/25/2024 12:00:52 magnesiu m, serum or plasma 2022 024 JEY Not available 02/12/2024 11:52:52 CMP, serum or plasma 2021 023 Not available 03/07/2023 16:28:03 vitamin D, 25-hydro xy, total, serum 2021 023 Not available 03/07/2023 16:27:37 PTH (parathy roid hormone) , intact, serum or plasma 2021 023 JEY Not available 03/07/2023 16:30:02 Referral None recorded . Procedures None recorded . Surgeries None recorded . Imaging bone density 2023 026 akoza [facility], [address], [address], [place], [address], 02/13/2024 05:57:49 bone density 2022 024 [email or web address] [facility], [address], [address], [place], [address], 08/17/2024 14:59:21 bone density - To be complete d around 02/26/20 24 2021 022 [email or web address] [facility], [address], [address], [place], [address], 01/13/2023 10:27:29 bone density 2021 022 [email or web address] [facility], [address], [address], [place], [address], 02/25/2022 11:44:27 Medication Orders None recorded . Patient TargetsNo targets recorded. Patient Instructions Encounter Date Encounter Id Patient Instructions Last Modified By Organization Details Last Modified Time 11/26/2021 [id number] osteoporosis: ca re instructions [email or web address] Not available 11/26/2021 11:35:28 hypocalcemia: ca re instructions [email or web address] Not available 11/26/2021 11:35:28 electrolyte imbalance: care instructions [email or web address] Not available 11/26/2021 11:35:28 hyponatremia: ca re instructions [email or web address] Not available 11/26/2021 11:35:28 hypoglycemia: ca re instructions [email or web address] Not available 11/26/2021 11:35:28 hyponatremia: ca re instructions [email or web address] Not available 11/26/2021 11:35:28 ? D isclaimer: Alternative of therapy, risks, benefits and all options discussed including natural history, self-management, and risks of default. ? I discussed in length the natural progression of the disease, its potential complications and the goals of therapy. ? A ll instructions were given verbally and in writing. [email or web address] Not available 12/05/2021 20:51:38 02/25/2022 [id number] ? D isclaimer: Alternative of therapy, risks, benefits and all options discussed including natural history, self-management, and risks of default. ? I discussed in length the natural progression of the disease, its potential complications and the goals of therapy. ? A ll instructions were given verbally and in writing. [email or web address] Not available 02/25/2022 22:54:03 03/03/2023 [id number] ? D isclaimer: Alternative of therapy, risks, benefits and all options discussed including natural history, self-management, and risks of default. ? I discussed in length the natural progression of the disease, its potential complications and the goals of therapy. ? A ll instructions were given verbally and in writing. [email or web address] Not available 03/03/2023 17:39:04 02/12/2024 [id number] ? D isclaimer: Alternative of therapy, risks, benefits and all options discussed including natural history, self-management, and risks of default. ? I discussed in length the natural progression of the disease, its potential complications and the goals of therapy. ? A ll instructions were given verbally and in writing. [email or web address] Not available 02/13/2024 05:57:47 05/06/2024 [id number] ? D isclaimer: Alternative of therapy, risks, benefits and all options discussed including natural history, self-management, and risks of default. ? I discussed in length the natural progression of the disease, its potential complications and the goals of therapy. ? A ll instructions were given verbally and in writing. [email or web address] Not available 05/06/2024 12:04:29 Reason for Referral None Reported. Results Created Date Observation Date Name Description Value Unit Range Abnormal Flag Note LastModifiedBy Organization Detail LastModifiedTime 02/26/20 22 01/26/2022 bone densi ty No observ ation record ed. [email or web address] [facility] [address] [facility] [address], [address], 02/25/2022 12:43:03 02/12/20 24 01/30/2024 imagi ng/di agnos tic resul t No observ ation record ed. [email or web address] [facility] [address] [facility], [place], [address], 02/13/2024 05:49:08 Result Notes None recorded. Problems Name Problem SNOMED Code Status Onset Date Resolution Date Notes Provider Name and Address Organization Details Recorded Time Hyperlipidemi a 54991919 Active 3799 Nadege Ibis null, [facility] 0 09:15:16 Hypo-osmolali ty and or hyponatremia 997571260 Active 3799 Nadege Ibis null, [facility] 0 09:15:16 Epilepsy 07309371 Active 3799 Nadege Ibis null, [facility] 0 09:15:16 Vitamin D deficiency 69371527 Active Nadege Ibis null, [facility] 0 09:15:16 Hypomagnesemi a 916574641 Active Nadege Ibis null, [facility] 0 09:15:16 Fatigue 62300191 Active Nadege Ibis null, [facility] 0 09:15:16 Hypoglycemia 387608486 Active 2017 Nadege Ibis null, [facility] 0 09:15:16 Hyponatremia 26378041 Active 2017 Nadege Ibis null, [facility] 0 09:15:16 Laboratory test result abnormal 486384602 Active 2017 Nadege Ibis null, [facility] 0 09:15:16 Blood chemistry outside reference range 856663121 Active 2017 Nadege Ibis null, [facility] 0 09:15:16 Osteoporosis 84343428 Active 2019 Nadege Ibis null, [facility] 0 09:15:16 Glucose level outside reference range 982375083 Active 2019 Nadege Ibis null, [facility] 0 09:15:16 Hypocalcemia 2994691 Active 2020 Sanjuana kinsey null, [facility] 1 10:00:30 Problem Notes None recorded. Procedures Surgical History Date Name Laterality Status Provider Name and Address Organization Details Recorded Time 11/20/1979 other completed Neela Crane [facility] 04/22/2014 11:50:41 Imaging Results Imaging Date Name Status LastModified by Organiz ation Details LastModified Time 01/26/2022 bone density completed [facility] [address], [place], [address], 02/25/2022 12:43:03 01/30/2024 imaging/diag nostic result completed [facility] [address], [place], [address], 02/13/2024 05:49:08 Procedure Notes None recorded. Medical Equipment None Reported. Allergies Allergen ID Allergen Name Allergen Category Reaction Reaction Severity Criticality Documentation Date Start Date Code Code System Note Provider Name and Address Organization Details Recorded Time 227924 lorazepam medicatio n rash moderate Not available 01/24/2020 6470 RxNorm Brigida Bianchi [facility] 0 12:54:20 Medications Name Sig Start Date Stop Date Status Note LastModified by Organization Details LastModified Time Miralax 17 gram oral powder packet Take 1 packet as needed by oral route. 01/23 completed Not Available Not Available Not Available fluoxetin e 40 mg capsule Take 1 capsule every day by oral route. 11/30 completed Not Available Not Available Not Available atorvasta tin 40 mg tablet Take 1 tablet every day by oral route. active Not Available Not Available No t Available Xanax 0.5 mg tablet Take 1 tablet every day by oral route as needed. 10/08 completed Not Available Not Available Not Available trazodone 50 mg tablet Take 2 tablets every day by oral route. active Not Available Not Available No t Available FreeStyle Lancets 28 gauge USE TO TEST BLOOD SUGAR WEEKLY active Not Available Not Available No t Available alendrona te 70 mg tablet Take 1 tablet every week by oral route. active Not Available Not Available No t Available sodium chloride 1 gram tablet Take 1 tablet every other day by oral route as directed for 30 days. 05/07 completed Not Available Not Available Not Available Debrox 6.5 % ear drops INSTILL 4 DROPS INTO AFFECTED EAR(S) BY OTIC ROUTE 2 TIMES PER DAY 10/09 completed Not Available Not Available Not Available acarbose 50 mg tablet TAKE 1 TABLET (50MG) BY MOUTH ONCE A DAY WITH 1ST BITE OF THE LARGEST MEAL 11/26 completed 10/06/20 21 patient has been off medicati on for about 1 month halfway staff stated medicati on was D/C 1 but not sure where order came from Not Available Not Available Not Available Lipitor 20 mg tablet Take 2 tablets every day by oral route. active Not Available Not Available No t Available Cortrosyn 0.25 mg solution for injection Take 250 microgra ms as needed by injectio n route as directed for 1 day. 08/31 completed Injectio n @ 9:05 am, labs to be drawn at 30 and 60 min Not Available Not Available Not Available Zanaflex 4 mg tablet Take 1 tablet 3 times a day by oral route. active Not Available Not Available No t Available magnesium oxide 400 mg (241.3 mg magnesium ) tablet TAKE 1 TABLET BY MOUTH DAILY FOR SUPPLEME NT IN AM 2023 active Not Available Not Available Not Avai lable Klonopin 0.5 mg tablet Take 1 tablet every day by oral route. active increase d prn for agitatio n 3 Not Available Not Available Not Available tamsulosi n 0.4 mg capsule Take 1 capsule every day by oral route at bedtime. active Not Available Not Available No t Available Depakote ER 500 mg tablet,ex tended release Take 1 tablet twice a day by oral route. 08/04 completed Not Available Not Available Not Available Prozac 20 mg capsule Take 2 capsules every day by oral route. 10/09 completed Not Available Not Available Not Available fluoxetin e 20 mg tablet Take 1 tablet every day by oral route. 11/30 completed Not Available Not Available Not Available nystatin 100,000 unit/gram topical cream APPLY TO THE AFFECTED AREA(S) BY TOPICAL ROUTE 2 TIMES PER DAY active Not Available Not Available No t Available glucose 4 gram chewable tablet take as needed for low blood sugar up to 4 per day 2020 active Not Available Not Available Not Avai lable Trileptal 150 mg tablet Take 1 tablet twice a day by oral route. 07/21 completed Not Available Not Available Not Available docusate sodium 100 mg capsule Take 1 capsule every day by oral route in the morning for 90 days. 01/23 completed Not Available Not Available Not Available Mysoline 250 mg tablet Take 1 tablet every day by oral route. active 1.5 tabs in AM 2 tabs in PM Not Available Not Available Not Available Trileptal 300 mg tablet Take 1 tablet twice a day by oral route. active Not Available Not Available No t Available Aclovate 0.05 % topical cream APPLY A THIN LAYER TO THE AFFECTED AREA(S) BY TOPICAL ROUTE 2 TIMES PER DAY active PRN Not Available Not Available No t Available Lipitor 10 mg tablet Take 1 tablet every day by oral route. active Not Available Not Available No t Available Depakote 250 mg tablet,de layed release Take 1 tablet twice a day by oral route. 11/30 completed Not Available Not Available Not Available finasteri de 5 mg tablet Take 1 tablet every day by oral route in the evening. active Not Available Not Available No t Available naproxen 500 mg tablet Take 1 tablet twice a day by oral route as needed. active Not Available Not Available No t Available cholecalc iferol (vitamin D3) 25 mcg (1,000 unit) capsule Take 1 capsule every day by oral route for 90 days. 02/08 completed pt not taking 03/01/23 Not Available Not Available Not Available Depakote ER 250 mg tablet,ex tended release Take 3 tablets twice a day by oral route. active Not Available Not Available No t Available Abilify 5 mg tablet Take 2 tablets every day by oral route. active Not Available Not Available No t Available Alcohol Prep Pads USE TO TEST BLOOD GLUCOSE 3 TIMES PER WEEK DX: E16.2 2018 active Not Available Not Available Not Avai lable Zanaflex 2 mg capsule Take 1 capsule every day by oral route. active Not Available Not Available No t Available Zanaflex 4 mg capsule Take 1 capsule 3 times a day by oral route. 11/30 completed Not Available Not Available Not Available Milk of Magnesia 30ML PRN 10/09 completed Not Available Not Available Not Available acetamino phen 500mg Take 1 QD 12/07 completed Not Available Not Available Not Available Guaifenes in AC DOSAGE:1 0 DOSEROUT E:PO REFILLS: DIRECTIO N: 2012 active Not Available Not Available Not Avai lable tizanidin e active Not Available Not Available Not Available Lac-Hydri n active Not Available Not Available Not Available lactulose ONE IN THE AM, ON THE PM active prn Not Available Not Available No t Available Imodium A-D active Not Available Not Available Not Available biotin 2 drops by mouth as directed active three times a daypt not taking 03/01/23 Not Available Not Available Not Available naproxen DOSAGE:5 00 DOSEROUT E:PO REFILLS: DIRECTIO N:TAKE:1 BID 2012 active Not Available Not Available Not Avai lable lidocaine 5% topical cream PRN 10/09 completed Not Available Not Available Not Available primidone active Not Available Not Miranda ilable Not Available Vitamin D3 DOSAGE:2 000 DOSEROUT E:PO REFILLS: DIRECTIO N:TAKE:1 2012 active Not Available Not Available Not Avai lable ketoconaz ole (bulk) active Not Available Not Available Not Available Trileptal DOSAGE:3 00 DOSEROUT E:PO REFILLS: DIRECTIO N:TAKE:1 2012 active Not Available Not Available Not Avai lable Abilify 5MG TABS DOSEROUT E:PO REFILLS: DIRECTIO N:TAKE:0 .5 2012 active Not Available Not Available Not Avai lable cholecalc iferol (vitamin D3) 25 mcg (1,000 unit) tablet TAKE 1 TABLET BY MOUTH DAILY FOR VIT D DEFICIEN CY IN AM 2023 active Not Available Not Available Not Avai lable FreeStyle Lite Meter kit USE DIRECTED WEEKLY *NOT COVERED* 2019 active Not Available Not Available Not Avai lable Vitamin D3 50 mcg (2,000 unit) capsule Take 1 capsule every day by oral route. 02/08 completed pt not taking 03/01/23 Not Available Not Available Not Available Contour Next Test Strips USE TO TEST BLOOD SUGAR NEEDED VIA FINGERST ICK IF THERE ARE SYMPTOMS OF HYPOGLYC EMIA OR HYPERGLY CEMIA DX: E16.2 2022 active Not Available Not Available Not Avai lable TRUEplus Lancets 30 gauge USE TO TEST BLOOD SUGAR NEEDED IF THERE ARE SYMPTOMS OF HYPO OR HYPERGLY CEMIA 2022 active Not Available Not Available Not Avai lable Robitussi n Cold-Flu Day Q4H 10ML PRN 10/09 completed Not Available Not Available Not Available TRUEplus Glucose 3.75 gram chewable tablet CHEW 1 TAB BY MOUTH FOR BS<70 RECHECK BS IN 15 MIN/IF STILL<70 CHEW ANOTHER TAB/MAX 4 TABS W/ 15 MIN BETWEEN TABS/IF SX WORSEN OR UNRESPON SIVE CALL 911/SEE [facility] 2022 active Not Available Not Available Not Avai lable Vitals Date Recorded Body height Provider Name an d Address Organization Details Last Updated DateTime 05/06/2024 172.72 cm Zenia Lott [facility] 09:38:05 Date Recorded Body height Provider Name an d Address Organization Details Last Updated DateTime 02/25/2022 172.72 cm Sanjuana Zimmer [facility] 02/25/2022 09:19:55 Social History Question Answer Notes LastModified by Organizat ion Details LastModified Time Tobacco Smoking Status [facility] 11:51:20 What Is Your Level Of Alcohol Consumption? None Information not available 04/22/2014 What Is Your Level Of Caffeine Consumption? None Decaf [email or web address] Information not available 03/01/2023 Which Illicit Or Recreational Drugs Have You Used? Never Information not available 04/22/2014 What Is Your Occupation? Disabled Information not available 01/16/2018 Were You Hospitalized Related To Your Condition Recently? No Information not available 04/18/2018 Marital Status Single Informatio n not available 04/22/2014 What Was The Date Of Your Most Recent Tobacco Screening? 10/06/2021 [email or web address] Information not available 10/06/2021 How Many Children Do You Have? 0 Information not available 04/22/2014 How Much Tobacco Do You Smoke? No [email or web address] Information not available 07/19/2019 Sex: Unknown Functional Status None recorded. Mental Status None recorded. Family History Relationship Description Onset Age of this Age Resolved Age Notes LastModified by Organization Details LastModified Time Father Malignant neoplasm of urinary bladder 70 [email or web address] Not available 2015 09:32:34 Medical History Condition Response arthritis Y seizure disorder Y hypertension Y Past Encounters Encounter ID Performer Location Encounter Start Date Encounter Closed Date Diagnosis/Indication Diagnosis SNOMED-CT Code Diagnosis ICD10 Code Diagnosis Note [id number] _[facility] [address] [facility] [address] [place] [address] 08/29/2013 00:00:[id number] [facility] [address] [place] [address] 08/10/2013 00:00:00 08/19/2013 00:00:00 Hypo-osmolality and or hyponatremia 327911747 [id number] [facility] [address] [place] [address] 08/29/2013 12:50:56 08/29/2013 13:36:12 Hypo-osmolality and or hyponatremia 100340744 [id number] [facility] [address] [address] 08/29/2013 00:00:00 08/31/2013 00:00:00 Hypo-osmolality and or hyponatremia 222817736 [id number] [facility] [address] [address] 10/31/2013 00:00:00 11/03/2013 00:00:00 Hypo-osmolality and or hyponatremia 762192147 [id number] [facility] [address] [place] [address] 11/28/2013 11:01:59 11/28/2013 12:34:02 Hypo-osmolality and or hyponatremia 351290885 [id number] [facility] [address] [address] 11/28/2013 00:00:00 11/29/2013 00:00:00 Hypo-osmolality and or hyponatremia 480320008 [id number] [facility] [address] [place] [address] 07/27/2013 00:00:00 08/15/2013 00:00:00 Hypo-osmolality and or hyponatremia 399597195 [id number] [facility] [address] [facility] [address] [place] [address] 11/28/2013 00:00:00 [id number] [facility] [address] [address] 09/21/2013 00:00:00 [id number] [facility] [address] [place] [address] 04/22/2014 10:48:00 04/22/2014 12:35:53 Hypo-osmolality and or hyponatremia 188513131 I will reevaluate both serum and urine studies Initial work up indeed c/w SIADH SIADH is a diagnosis of exclusion and hypothyroi dism and adrenal insufficie ncy diagnoses even subclinica l should be excluded as part of the work up Therefore I will assess for those too see orders Hyperlipidemia 46788419 I will assess lipid profile Vitamin D deficiency 32491602 I will f/u on vit D level and r/o celiac in the context of fatigue and mood control problems Hypomagnesemia 397187939 Fatigue 20091683 [id number] [facility] [address] [place] [address] 04/30/2014 11:16:01 04/30/2014 13:25:56 Hypo-osmolality and or hyponatremia 337173467 I will proceed with further endcrine work up Hyperlipidemia 97950664 Vitamin D deficiency 84060402 Hypomagnesemia 634460580 Fatigue 97167376 [id number] [facility] [address] [place] [address] 05/01/2014 07:53:05 05/01/2014 09:11:48 Hypo-osmolality and or hyponatremia 529837468 [id number] Neela [facility] [address] [place] [address] 05/07/2014 09:57:33 05/07/2014 10:36:33 Hypo-osmolality and or hyponatremia 801210076 I will continue current fluids restrictio n I will add salt tabs at 3 grams daily I will f/u on sodium level in 1 week I will also f/u on urine Na and urine osm SIADH? along with meds effect Hyperlipidemia 92957513 Vitamin D deficiency 07957934 Hypomagnesemia 440864201 Fatigue 15896669 [id number] [facility] [address] [place] [address] 05/14/2014 10:28:46 05/14/2014 11:10:59 Hypo-osmolality and or hyponatremia 909682937 I will continue current fluids restrictio n I will continue salt tabs at 3 grams daily I will f/u on sodium level in AGAIN in 1 week SIADH? along with meds effect verus just meds effect related to tx with Fluoxetine and Trileptal Hyperlipidemia 76573157 Vitamin D deficiency 60910436 Hypomagnesemia 633571041 Fatigue 02988193 [id number] [facility] [address] [place] [address] 2014 13:02:42 2014 13:59:25 Hypo-osmolality and or hyponatremia 654843437 I will continue current fluids restrictio n I will continue salt tabs at 3 grams daily I will f/u on sodium level in AGAIN in 2mo or earlier if problems SIADH? along with meds effect verus just meds effect related to tx with Fluoxetine and Trileptal Hyperlipidemia 38202260 Vitamin D deficiency 43448556 Hypomagnesemia 682885955 Fatigue 77381412 [id number] [facility] [address] [place] [address] 07/23/2014 10:39:56 07/23/2014 11:34:26 Hypo-osmolality and or hyponatremia 845172953 I will continue current fluids restrictio n I will continue salt at 3 grams daily I will f/u on sodium level along with other labs see below TODAY STAT SIADH? along with meds effect verus just meds effect related to tx with Fluoxetine and Trileptal further management will depend on today's lab results Hyperlipidemia 95211391 Vitamin D deficiency 83537391 Hypomagnesemia 906762264 Fatigue 69515867 [id number] [facility] [address] [place] [address] 08/19/2014 10:04:06 08/19/2014 10:32:40 Hypo-osmolality and or hyponatremia 146234413 I will continue current fluids restrictio n I will continue salt tabs at 3 grams daily I will f/u on sodium level along with other labs see below every month SIADH? along with meds effect verus just meds effect related to tx with Fluoxetine and Trileptal Vitamin D deficiency 13823255 I will continue current vit d replacemen t Fatigue 15203197 resolve d [id number] [facility] [address] [facility] [place] [address] 04/02/2015 09:05:28 04/02/2015 11:25:02 Hypo-osmolality and or hyponatremia 138709897 I will continue current fluids restrictio n I will continue salt tabs at 3 grams daily I will f/u on sodium level some time this week SIADH? along with meds effect verus just meds effect related to tx with Fluoxetine and Trileptal Vitamin D deficiency 56340643 I will assess vit d level Fatigue 76577812 resolve d [id number] Nasrin Torres MD [facility] [address] [place] [address] 10/09/2015 10:59:49 10/09/2015 12:08:23 Hypo-osmolality and or hyponatremia 420128087 E87.1 I will continue current fluids restrictio n I will continue salt tabs at 3 grams daily I will f/u on sodium level some time this week SIADH? along with meds effect verus just meds effect related to tx with Fluoxetine and Trileptal Vitamin D deficiency 347 74610 E55.9 I will assess vit d level Fatigue 77270341 R53.83 resolved [id number] Nasrin Torres MD [facility] [address] [place] [address] 06/02/2016 09:06:49 06/02/2016 10:05:07 Hypo-osmolality and or hyponatremia 916418041 E87.1 I will continue current fluids restrictio n I will continue salt tabs at 3 grams daily I will f/u on sodium level in 6 weeks and in 6 mo if Na normal after stopping tx with Trileptal I will plan on liberaliza tion of fluids intake and also taper down and off Na tabs Vitamin D deficiency 347 60646 E55.9 I will assess vit d level Fatigue 70291888 R53.83 resolved [id number] Nasrin Torres MD [facility] [address] [place] [address] 12/07/2016 09:45:54 12/08/2016 10:15:33 Hypo-osmolality and or hyponatremia 524347808 E87.1 I will continue current regimen Vitamin D deficiency 347 14967 E55.9 I will continue current replacemen t Fatigue 01248127 R53.83 resolved [id number] Nasrin Torres MD [facility] [address] [place] [address] 07/21/2017 13:30:49 07/21/2017 14:43:15 Hypo-osmolality and or hyponatremia 908418477 E87.1 I will continue current regimen I will assess BMP today Vitamin D deficiency 347 91843 E55.9 I will continue current replacemen t [id number] Nasrin Torres MD [facility] [address] [place] [address] 08/24/2017 13:49:38 08/24/2017 15:58:47 Hypo-osmolality and or hyponatremia 699526224 E87.1 I will monitor periodical ly Vitamin D deficiency 347 08810 E55.9 I will continue current replacemen t Hypoglycemia 590791465 E 16.2 insulin dependent needs further eval? reactive in the setting of possible PREDM ? IGTI will plan on OGTT 2 hrs and if low BG I will proceed with further hypoglycem ia work up [id number] Nasrin Torres MD [facility] [address] [place] [address] 10/03/2017 13:49:34 10/03/2017 14:42:35 Hypo-osmolality and or hyponatremia 754533604 E87.1 I will monitor periodical ly Hypoglycemia 063764523 E 16.2 I will continue to monitor and look for endocrine cause [id number] Nasrin Torres MD [facility] [address] [place] [address] 10/27/2017 10:09:41 10/27/2017 11:38:03 Hyponatremia 72194850 E87.1 continue current regimen with salt replacemen t Hypoglycemia 592683489 E 16.2 [id number] Radha Hall, MS, RD, RDN, CDE [facility] [address] [facility] [address] 11/24/2017 09:25:15 11/24/2017 12:21:50 Hypoglycemia 160831196 E16.2 [id number] Nasrin Torres MD [facility] [address] [place] [address] 11/30/2017 13:13:11 11/30/2017 14:17:45 Hypoglycemia 018665899 E16.2 ? reactiveco ntinue current regimenI will place personal CGM to ensure no hypoglycem ia or if there is what is current pattern Hyponatremia 32535723 E8 7.1 continue current regimen with salt tabs [id number] [facility] [address] [place] [address] 12/11/2017 09:03:50 12/11/2017 10:27:20 Hypoglycemia 056175898 E16.2 ? physiologi c or pathologic ? fasting I will ensure adrenal axis dyana in the light of unexplaine d hyponatrem ia Hyponatremia 16380161 E8 7.1 continue current regimen with salt tabs Laboratory test result abnormal 728090018 R89.9 normal 8 AM cortisol but elevated ACTHI will reassess HPA axisfurthe r mngmnt will depend on results [id number] Nasrin Torres MD [facility] [address] [place] [address] 01/16/2018 09:30:00 01/16/2018 10:32:04 Hypoglycemia 179476129 E16.2 ? physiologi c or pathologic ? fasting and reactive I will ensure adrenal axis dyana in the light of unexplaine d hyponatrem ia again in 3 mo and monitor clinically Hyponatremia 46642808 E8 7.1 continue current regimen with salt tabs Laboratory test result abnormal 576517885 R89.9 normal 8 AM cortisol but elevated ACTHI will reassess HPA axis in 3 mofurther mngmnt will depend on results? related to the stress of the blood drawpartia l AIor congenital adrenal hyperplasi a spectrum? [id number] Nasrin Torres MD [facility] [address] [facility] [place] [address] 04/18/2018 09:47:58 04/19/2018 08:20:45 Hypoglycemia 616915021 E16.2 resolvedpt to continue tx with Acarbose Hyponatremia 22543476 E8 7.1 continue current regimen with salt tabsI will assess BMP today if normal I will decrease fluids restrictio n to 55 onces a day and I will be monitoring Na level Q weekly for next 4 weeks Blood chem istry outside reference range 856306493 R79.9 elevated ACTH ? due to stress of the blood drawI will assess renin and aldosteron e and anti adrenal antibodies random [id number] Radha Escobar CNP [facility] [address] [place] [address] 05/17/2018 09:53:14 05/17/2018 10:27:06 Hypoglycemia 693673921 E16.2 StableReso lvedContin ue on acarbose 50 mg TID with mealsBG continue to be monitored 2 x per week PP Hyponatremia 32229056 E8 7.1 StableLast na level at 136continu e on Sodium Chloride 1 gm tab three times a day Blood chem istry outside reference range 900524644 R79.9 Now stableRece nt renin and aldosteron e within normal limits [id number] Nasrin Torres MD [facility] [address] [place] [address] 07/20/2018 10:11:20 07/20/2018 11:15:17 Hypoglycemia 226663147 E16.2 reactive?r esolvedpt to continue tx with Acarbose Hyponatremia 15391881 E8 7.1 continue current regimen with salt tabsI will assess BMP today if normal I will decrease fluids restrictio n graduallyd ue to SIADHdue to meds Prozac and Ablify? Blood chem istry outside reference range 943865068 R79.9 elevated ACTH ? due to stress of the blood drawI will assess HPA axis see orders below Laboratory test result abnormal 502767877 R89.9 hx of abnormal TFT'sI will reassess [id number] Nasrin Torres MD [facility] [address] [facility] [place] [address] 08/17/2018 10:10:11 08/17/2018 10:51:17 Hypoglycemia 786509824 E16.2 reactive?r esolvedpt to continue tx with Acarbose Hyponatremia 17494142 E8 7.1 continue current regimen with salt tabs and fluids restrictio ndue to meds Prozac and Ablify? I will reassess HPA axis to ensure no change in adrenal function Blood chem istry outside reference range 142424137 R79.9 elevated ACTH ? due to stress of the blood drawI will assess HPA axis see orders below [id number] Nasrin Torres MD [facility] [address] [place] [address] 08/21/2018 08:41:20 08/21/2018 09:11:31 Fatigue 10274666 R53.83 [id number] Nasrin Torres MD [facility] [address] [place] [address] 08/31/2018 10:03:19 08/31/2018 10:57:01 Hypoglycemia 025893327 E16.2 reactive?r esolvedpt to continue tx with Acarbose Hyponatremia 62124063 E8 7.1 continue current regimen with salt tabsI will assess BMP in 3 modue to SIADHdue to meds Prozac and Abilify?if pt planned for taper down and off of Prozac he will need periodic assessment of sodium during the time of med change [id number] Nasrin Torres MD [facility] [address] [place] [address] 10/05/2018 10:57:54 10/05/2018 11:56:11 Hypoglycemia 110930475 E16.2 reactive?r esolvedpt to continue tx with Acarbose Hyponatremia 16154282 E8 7.1 continue current regimen with salt tabsI will assess BMP in 3 modue to SIADHdue to meds Prozac and Abilify?if pt planned for taper down and off of Prozac he will need periodic assessment of sodium during the time of med change [id number] Nasrin Torres MD [facility] [address] [place] [address] 01/16/2019 11:32:46 01/16/2019 12:34:58 Hyponatremia 70819213 E87.1 continue current regimen with salt tabsI will assess BMP today and in 6 modue to SIADHdue to meds Prozac and Abilify?if pt planned for taper down and off of Prozac he will need periodic assessment of sodium during the time of med change Hypoglycemia 709785442 E 16.2 resolvedco ntinue current regimen with Acarbose [id number] MD [facility] [address] [facility] [place] [address] 07/19/2019 12:34:53 07/19/2019 13:12:36 Hypoglycemia 977064184 E16.2 continue current regimen with Acarbose Hyponatremia 89509446 E8 7.1 continue current regimen with salt tabsI will assess BMP in 6 modue to SIADHdue to meds Prozac and Abilify?if pt planned for taper down and off of Prozac he will need periodic assessment of sodium during the time of med change [id number] Nasrin Torres MD [facility] [address] [facility] [place] [address] 01/24/2020 12:41:43 01/24/2020 13:40:01 Hyponatremia 71730366 E87.1 I will request BMP from last week Hypoglycemia 136967019 E 16.2 Resolved with therapy with acarbose for monitoring per protocol Osteoporosis 50908128 M8 1.0 Will request bone density reportI will also ensure work-up for for secondary causes of bone loss Vitamin D deficiency 347 76384 E55.9 I will assess vitamin D status Glucose le ganesh outside reference range 909900123 R73.09 In the context of recent postprandi al blood sugars above and about 140 I will assess hemoglobin A1c as well as lipids to ensure no evidence of metabolic syndrome and no evidence of prediabete s [id number] MD [facility] [address] [facility] [place] [address] 10/09/2020 09:31:13 10/09/2020 14:22:24 Hyponatremia 35006827 E87.1 I will lower salt to 1 teaspoon 2 times a day I will also lower salt tablets to 1 tab 2 times a Li will assess BMP in 6 weeksni ng stuff to monitor for symptoms of hyponatrem ia and report those to me as soon as observedHo pefully we will be able to gradually decrease it down and off if normal sodium level Hypoglycemia 840801948 E 16.2 Resolved with therapy with acarbose I will lower Acarbose to only 1 tab with largest meal and decrease frequency of BG monitoring to only as needed if symptoms of hypo or hyperglyce miaHopeful ly we will be able to taper med down and off Vitamin D deficiency 347 36919 E55.9 I will assess vitamin D status with next set of labs in 6 weeks Planned kareen temple contact [phone] M51.40 This visit was conducted using the telephone. Verbal consent was obtained from the patient and informed that insurance will be billed. Name of persons on the call: Fernanda (JAYLEEN), (patient), Dr. Torres Provider location: home Patient location: home I, as the provider, have informed my patient on how they can see a provider in-person in the event of an emergency. [employer] time spent: 8 mins Provider time spent: 9 min Greater than 50% of this time was spent on education, counseling , discussion , and coordinati ng care for the above issues. [id number] Nasrin Torres MD [facility] [address] [place] [address] 02/12/2021 09:47:48 02/16/2021 09:00:11 Hyponatremia 03281100 E87.1 I will continue salt at 1 teaspoon 2 times a day I will continue salt tablets at 1 tab 2 times a day I will assess BMP on Monday nursing stuff to monitor for symptoms of hyponatrem ia and report those to me as soon as observed Hopefully we will be able to gradually decrease it down and off if normal sodium level Hypoglycemia 100165359 E 16.2 Resolved with therapy with acarbose I will lower Acarbose to only 1 tab with largest meal and decrease frequency of BG monitoring to only as needed if symptoms of hypo or hyperglyce miaHopeful ly we will be able to taper med down and off Vitamin D deficiency 347 17333 E55.9 continue current regimen Suitable f or telehealth monitoring 773844861 Z78.9 This visit was conducted using two-way, real-time telehealth video conferenci ng. Verbal consent was obtained from the patient and informed insurance will be billed. Name of persons on video conferenci ng: KATIE Baron MA Anna Kozupa, MD Provider location: Home Patient location: Home I, as the provider, have informed my patient on how they can see a provider in-person in the event of an emergency. Provider time spent: 12 min [id number] MD [facility] [address] [facility] [place] [address] 02/26/2021 10:59:43 02/26/2021 12:30:15 Hyponatremia 37390093 E87.1 I will decrease salt tablet to EVERY OTHER a day I will assess BMP in 1 mo nursing stuff to monitor for symptoms of hyponatrem ia and report those to me as soon as observed Hopefully we will be able to gradually decrease it down and off if normal sodium level Hypoglycemia 432366962 E 16.2 Resolved with therapy with acarbose I will continue Acarbose to only 1 tab with largest meal and decrease frequency of BG monitoring to only as needed if symptoms of hypo or hyperglyce sarahy Hopefully we will be able to taper med down and off Vitamin D deficiency 347 63726 E55.9 continue current regimen Planned kareen temple contact [phone] W12.46 This visit was conducted using the telephone. Verbal consent was obtained from the patient and informed that insurance will be billed. Name of persons on the call: KATIE Baron MA Anna Kozupa, MD Provider location: Home Patient location: Home I, as the provider, have informed my patient on how they can see a provider in-person in the event of an emergency. Provider time spent: 8 min [id number] MD [facility] [address] [facility] [address] 04/16/2021 09:13:40 04/16/2021 11:05:55 Hyponatremia 16617422 E87.1 I will stop salt tables I will assess BMP in 2 weeks nursing stuff to monitor for symptoms of hyponatrem ia and report those to me as soon as observed Hopefully we will be able to gradually decrease it down and off if normal sodium level Hypoglycemia 339367463 E 16.2 Resolved with therapy with acarbose I will continue Acarbose to only 1 tab with largest meal and decrease frequency of BG monitoring to only as needed if symptoms of hypo or hyperglyce sarahy Hopefully we will be able to taper med down and off Vitamin D deficiency 347 43226 E55.9 continue current regimen Planned te windy contact [phone] E45.10 This visit was conducted using the telephone. Verbal consent was obtained from the patient and informed that insurance will be billed.Nikos quintanilla of persons on the call: Corby Starkey, JAYLEEN Omer MDProvider location: [facility] location: [facility], as the provider, have informed my patient on how they can see a provider in-person in the event of an emergency. Provider time spent: 6 min Hypocalcemia 6804289 E83 .51 for further evaluation see work up below [id number] MD MARY C[facility] [address] [place] [address] 05/07/2021 09:59:00 05/07/2021 10:56:29 [id number] MD MARY C[facility] [address] [place] [address] 05/21/2021 09:29:39 05/21/2021 10:51:34 [id number] MD MARY [facility] [address] [place] [address] 06/11/2021 08:42:32 06/11/2021 16:47:58 Hyponatremia 97057718 E87.1 I will stop table salt I will assess BMP in 1 week from table salt cessation nursing stuff to monitor for symptoms of hyponatrem ia and report those to me as soon as observed Hopefully we will be able to gradually decrease it down and off if normal sodium level Vitamin D deficiency 347 94134 E55.9 continue current regimen Hypocalcemia 4126087 E83 .51 resolved Planned te lephone contact [phone] W10.33 This visit was conducted using the telephone. Verbal consent was obtained from the patient and informed that insurance will be billed. Name of persons on the call: KATIE Baron MA Anna Kozupa, MD Provider location: Home Patient location: Home I, as the provider, have informed my patient on how they can see a provider in-person in the event of an emergency. Provider time spent: 11 min Hypomagnesemia 069347135 E83.42 pt to continue magnesium replacemen t and recheck Mg level in 1 week [id number] Nasrin Torres MD [facility] [address] [facility] [address] 07/09/2021 08:35:26 07/09/2021 13:02:52 Planned telephone contact [phone] A45.57 This visit was conducted using the telephone. Verbal consent was obtained from the patient and informed that insurance will be billed. Name of persons on the call: KATIE Baron MA Anna Kozupa, MD Provider location: Home Office Patient location: Home I, as the provider, have informed my patient on how they can see a provider in-person in the event of an emergency. Provider time spent: 6 min Hyponatremia 07974298 E8 7.1 resolved for periodic monitoring Vitamin D deficiency 347 97488 E55.9 resolved for periodic monitoring Hypocalcemia 8004972 E83 .51 resolved for periodic monitoring Hypomagnesemia 637990925 E83.42 resolved for periodic monitoring Hypoglycemia 175776146 E 16.2 Resolved with therapy with acarbose I will continue Acarbose to only 1 tab with largest meal and decrease frequency of BG monitoring to only as needed if symptoms of hypo or hyperglyce sarahy Hopefully we will be able to taper med down and offbut we will need good insight into BG monitoring as pt off of Acarbose with Annette CGM to ensure no hypo or hyperglyce sarahy Glucose le ganesh outside reference range 496616702 R73.09 In the context of recent postprandi al blood sugars above and about 140 I will assess hemoglobin A1c as well as fasting glucose and lipids to ensure no evidence of metabolic syndrome and no evidence of prediabete s dyana in the light of tx with Abilify [id number] Nasrin Torres MD [facility] [address] [place] [address] 11/26/2021 09:18:38 11/30/2021 12:00:57 Planned telephone contact [phone] I08.28 This visit was conducted using the telephone. Verbal consent was obtained from the patient and informed that insurance will be billed.Nikos quintanilla of persons on the call: patient, alf staff and Dr. Rosa [facility]as [facility] [place] time spent: 6 minutes I, as the provider, have informed my patient on how they can see a provider in-person in the event of an emergency. Provider time spent: 6 min Hyponatremia 43011806 E8 7.1 resolved for periodic monitoring Vitamin D deficiency 347 44544 E55.9 resolved for periodic monitoring Hypocalcemia 7671357 E83 .51 resolved for periodic monitoring Hypo-osmol ality and or hyponatremia 710835078 E87.1 I will monitor periodical ly Hypomagnesemia 609639957 E83.42 resolved for periodic monitoring Hypoglycemia 089697448 E 16.2 Resolved Osteoporosis 24063471 M8 1.0 Will request bone density report and follow up on bone density now to assess response from therapy with Fosamax and to decide about the need of continuati on [id number] Nasrin Torres MD [facility] [address] [place] [address] 02/25/2022 09:18:56 02/25/2022 14:33:15 Hyponatremia 77459046 E87.1 resolved for periodic monitoring Hypocalcemia 4905460 E83 .51 resolved for periodic monitoring Vitamin D deficiency 347 87774 E55.9 I will request the report of most recent vit d level for guidance Hypo-osmol ality and or hyponatremia 139236895 E87.1 I will monitor periodical ly Hypomagnesemia 132882345 E83.42 resolved for periodic monitoring Hypoglycemia 862903531 E 16.2 Resolved Osteoporosis 39442960 M8 1.0 continue current regimen with FosamaxI will assess CMP, PTH and vit d before next visit in 1 yearpt also needs f/u BMD in 2 yearspt to ensure dietary intake of Calciumdos ing of vit d will depend on most recent test when available for my reviewalso needs full fall precaution s and daily weight bearing exercises Planned te lephone contact [phone] Z76.89 This visit was conducted using the telephone. Verbal consent was obtained from the patient and informed that insurance will be billed.Nam e of persons on the call: PT and RN, JAYLEEN Gomez MDProvider location: [facility] location: [facility], as the provider, have informed my patient on how they can see a provider in-person in the event of an emergency. Provider time spent:8 min [id number] MD MARY Caceres [facility] [address] [address] 03/03/2023 08:15:26 03/10/2023 14:11:01 Hyponatremia 49917140 E87.1 resolved for periodic monitoring Hypocalcemia 8568438 E83 .51 resolved for periodic monitoring Vitamin D deficiency 347 20616 E55.9 resolved for periodic monitoring Hypomagnesemia 523234358 E83.42 resolved for periodic monitoring Hypoglycemia 333517687 E 16.2 ResolvedI will d/c BG checks and hypoglycem ia protocol Osteoporosis 19649459 M8 1.0 continue current regimen with FosamaxI will assess CMP, PTH, Mg and vit d before next visit in 1 yearpt also needs f/u BMD in 1 yearpt to ensure dietary intake of Calcium also needs full fall precaution s and daily weight bearing exercises Planned te lephone contact [phone] Z76.89 This visit was conducted using the telephone. Verbal consent was obtained from the patient and informed that insurance will be billed.Nam e of persons on the call: Corby Starkey pt (along with Commissioned Sales Associate) JAYLEEN Urbina MDProvider location: [facility] location: [facility], as the provider, have informed my patient on how they can see a provider in-person in the event of an emergency. Provider time spent: 8 min [id number] MD MARY Caceres [facility] [address] [place] [address] 02/12/2024 08:14:51 02/12/2024 13:51:50 Hyponatremia 14922896 E87.1 most likely related to tx with Abilifyfor monitoring periodical ly I will assess f/u BMP in 3 moalso for monitoring of clinical symptoms of hyponatrem ia Hypocalcemia 4177811 E83 .51 resolved for periodic monitoring Vitamin D deficiency 347 26203 E55.9 resolved for periodic monitoring Hypomagnesemia 316497065 E83.42 resolved for periodic monitoring Hypoglycemia 902416920 E 16.2 Resolved Osteoporosis 34734768 M8 1.0 continue current regimen with Fosamax for 2 more years and repeat BMD in 2 yearsI will assess CMP, PTH, Mg and vit d before next visit in 1 yearpt to ensure dietary intake of Calcium also needs full fall precaution s and daily weight-ilene ring exercises Planned kareen temple contact [phone] C33.60 This visit was conducted using the telephone. Verbal consent was obtained from the patient and informed that insurance will be billed.Nikos e of persons on the call: [facility] , Rachele TRENT ([facility]), Nasrin Torres ()Provid er location: [facility] location: [place], as the provider, have informed my patient on how they can see a provider in-person in the event of an emergency. Provider time spent: 7 min [id number] Nasrin Torres MD [facility] [address] [facility] [place] [address] 05/06/2024 09:32:54 05/15/2024 09:00:00 Hyponatremia 28052884 E87.1 I will request the results of the blood test from [facility] labPatient will be contacted when results availablem ost likely related to tx with Abilifyfor monitoring periodical ly I will assess f/u BMP in 12 moalso for monitoring of clinical symptoms of hyponatrem ia Hypocalcemia 2033200 E83 .51 resolved for periodic monitoring Osteoporosis 02232541 M8 1.0 continue current regimen with Fosamax for 2 more years and repeat BMD in 2 yearsI will assess CMP, PTH, Mg and vit d before next visit in 1 yearpt to ensure dietary intake of Calcium also needs full fall precaution s and daily weight-ilene ring exercises Vitamin D deficiency 347 83212 E55.9 resolved for periodic monitoring Hypomagnesemia 085409083 E83.42 resolved for periodic monitoring Hypoglycemia 224838606 E 16.2 Resolved Planned te lephone contact [phone] K02.88 This visit was conducted using the telephone. Verbal consent was obtained from the patient and informed that insurance will be billed.Nikos quintanilla of persons on the call: Corby Starkey Pt (along with crown wheel assembler) , JAYLEEN Knutson, Marco Antonio Caceres location: a officePati ent location: HomeI, as the provider, have informed my patient on how they can see a provider in-person in the event of an emergency. Provider time spent: 5 min Health Concerns Section Related Observation LastModified by Organization Detai ls LastModified Time None Recorded Concern Status LastModified by Organization Details LastModified Time None Recorded Advance Directives Directive None Recorded Payers Encounter Date Sequence Insurance Name Policy Number Policy Vee Covered Member ID Vee Member ID Guarantor Name 11/26/2021 1 [place] [facility] Corby Starkey [id number] Corby Starkey 11/26/2021 2 [place] [facility] Corby Starkey [id number] Corby Starkey 02/25/2022 1 [place] [facility] Corby Starkey [id number] Corby Starkey 02/25/2022 2 [place] [facility]) Corby Starkey [id number] Corby Starkey 03/03/2023 1 [place] [facility] Corby Starkey [id number] Corby Starkey 03/03/2023 2 [place] [facility]) Corby Starkey [id number] Corby Starkey 02/12/2024 1 [place] [facility] Corby Starkey [id number] Corby Starkey 02/12/2024 2 [place] [facility] Corby Starkey [id number] Corby Starkey 05/06/2024 1 [place] [facility] Corby Starkey [id number] Corby Starkey 05/06/2024 2 [place] [facility]) Corby Starkey [id number] Corby Starkey Notes Date Note Type Note Provider Name and Address Organization Details Recorded Time 2 text/htm l Pt today for f/u re: hypoglycemia and hyponatremiaf/u Na WNL 06/18/2021 since then pt off of saltno complaints today vit d level normalnormal Mg level 06/18/2021 since then pt on Magnesium replacementLow sodium in the past believed to 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 Family was interested in pt stopping Acarbose to simplify the medical regimen.Therefore pt did stop Acarbose more than 3 mo agoHad CGM for 2 weeks after stopping Acarbose and no documented hypoglycemia.Caregiver also reports no symptoms suggestive of hypoglycemia.Patient also suffers from osteoporosis however I do not have an access to bone density patient now on therapy with Fosamax but it is unclear for me when Fosamax was started with the response to the therapy therefore will request initial bone density study I will also proceed with follow-up bone density. Nasrin Torres MD [address] [place], [phone], [facility] 12/05/2021 20:52:32 2 text/htm l Pt today for f/u re: hypoglycemia hyponatremia hypomagnesemia and osteoporosisf/u Na WNL 06/18/2021 since then pt off of saltno complaints today vit d level ? high per verbal report of the nurse but no result available for my reviewnormal Mg level 01/2022 since then pt on Magnesium replacementLow sodium in the past believed to 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 Family was interested in pt stopping Acarbose to simplify the medical regimen.Therefore pt did stop Acarbose more than 3 mo agoHad CGM for 2 weeks after stopping Acarbose and no documented hypoglycemia.Caregiver also reports no symptoms suggestive of hypoglycemia.Patient also suffers from osteoporosis , patient on therapy with Fosamax since 2018?f/u BMD reviewed no study to assess response of the therapy Nasrin Torres MD [address] [place] [address], [phone], [facility] 02/25/2022 22:55:03 3 text/htm l Pt today for f/u re: hypoglycemia hyponatremia hypomagnesemia and osteoporosisf/u Na WNL 02/27/2023f/u vit d level WNL 02/27/2023f/u CMP WNL 02/27/2023f/u PTH WNL 02/27/2023atient also suffers from osteoporosis , patient on therapy with Fosamax since 2018?f/u BMD reviewed no study to compare to assess response of the therapyHypoglycemia completely resolved no event for the last 2 years Nasrin Torres MD [address] [place] [address], [phone], [facility] 03/03/2023 17:40:03 4 text/htm l Pt today for f/u re: hypoglycemia hyponatremia hypomagnesemia and osteoporosisf/u Na minimally low 131 LLN 133 02/12/2024f/u vit d level WNL 02/12/2024f/u CMP WNL 02/12/2024f/u Md WNL 02/12/2024atient also suffers from osteoporosis , patient on therapy with Fosamax since 2018?f/u BMD reviewed 01/2024stable still in the range of osteoporosisHypoglycemia completely resolved no event for the last 3 years Nasrin Torres MD [address] [place] [address], [phone], [facility] 02/13/2024 05:58:29 4 text/htm l Pt today for f/u re: hypoglycemia hyponatremia hypomagnesemia and osteoporosisf/u Na minimally low 131 LLN 133 02/12/2024f/u vit d level WNL 02/12/2024/u CMP WNL 02/12/2024/u WNL 02/12/2024atient also suffers from osteoporosis , patient on therapy with Fosamax since 2018?f/u BMD reviewed 01/2024stable still in the range of osteoporosisHypoglycemia completely resolved no event for the last 3 yearsPt had f/u BMP on 04/29/2024 but lab result is not availableCaregiver denies any concerns and presence of symptoms of hyponatremia Nasrin Torres MD [address] [place] [address], [phone], [facility] 05/06/2024 12:06:04
--- OUTSIDE RECORDS SUMMARY | 2025-03-18 12:21 | XMS_ITS | Clinical Summary ---
Author Organization [facility] ity Address [address] [place] [address] Care Team Providers Care Outside Property Agent Name Role Phone Unavailable Primary Care Provider Unavailabl e Allergies Active Allergy Reactions Criticality Noted Date Comments Lorazepam 02/07/2019 Other Reaction(s): Hives/Urticaria Medications acetaminophen (TYLENOL 8 HOUR) 650 mg 8 hr tablet Take 1 tablet by mouth every 6 hours as needed (For temperature over 100 F/ NTE 3000 mg in 24 hours/ notify MD if used). 1 Active alendronate (FOSAMAX) 70 mg tablet TAKE 1 TABLET BY MOUTH ONCE WEEKLY ON MONDAY ON AN EMPTY STOMACH FOR OSTEOPOROSIS / KEEP UPRIGHT FOR 30 MINUTES AFTER ADMINISTRATION 2 Active ammonium lactate (LAC-HYDRIN) 12 % lotion APPLY A THIN LAYER TOPICALLY TWICE DAILY TO CLEAN FEET AND LEGS FOR SKIN CARE 1 Active ARIPiprazole (ABILIFY) 10 mg tablet Take 1 tablet by mouth every morning. 1 Active atorvastatin (LIPITOR) 20 mg tablet Take 1 tablet by mouth at bedtime. 1 Active cholecalcifero l (VITAMIN D-3) 25 mcg (1,000 unit) tablet Take 2 Tablets by mouth daily. 1 Active cholecalcifero l (VITAMIN D-3) 50 mcg (2,000 unit) tablet TAKE 1 TABLET (2,000 UNITS) BY MOUTH EVERY MORNING FOR VIT D DEFICIENCY 1 Active divalproex (DEPAKOTE) [address] tablet Take 3 Tablets by mouth 2 times daily. 1 Active finasteride (PROSCAR) 5 mg tablet Take 1 tablet by mouth daily. 1 Active ketoconazole (NIZORAL) 2 % cream Apply twice daily to face for prevention and maintenance 1 Active lactulose (Enulose) solution TAKE 30 ML BY MOUTH 2 TIMES DAILY 1 Active loperamide (IMODIUM) 2 mg capsule Take 1 capsule by mouth daily as needed for Diarrhea. Take 1 Cap by mouth daily as needed for Diarrhea. 1 Active magnesium oxide (MAG-OX) 400 mg (241.3 elemental magnesium) tablet Take 1 tablet by mouth daily. Active naproxen (NAPROSYN) 500 mg tablet Take 1 tablet by mouth every 12 hours as needed for Pain. Take 1 Tab by mouth every 12 hours as needed for Pain. 1 Active nystatin (MYCOSTATIN) cream APPLY 3 GRAMS NEEDED DAILY FOR DRY SKIN/FUNGAL RASH 1 Active primidone (MYSOLINE) 250 mg tablet Take 500 mg by mouth at bedtime. Active primidone (MYSOLINE) 250 mg tablet Take 375 mg by mouth every morning. FOR SEIZURES Active tamsulosin (FLOMAX) 0.4 mg 24 hr capsule Take 1 capsule by mouth daily. Take 30 mins after same meal every day. 1 Active tiZANidine (ZANAFLEX) 4 mg tablet Take 1 tablet by mouth 3 times daily. 1 Active traZODone (DESYREL) 100 mg tablet Take 100 mg by mouth at bedtime. Active UNABLE TO FIND Nutritional Supplements (Glucose Management) Tab Take 4 g by mouth as needed. 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) ([facility] V24) 11/07/2024 COVID-19 virus detected 01/29/2021 Hypercholesteremia 09/03/2019 Hearing loss 06/04/2019 Levoscoliosis 06/04/2019 Overview (11/07/2024): Mid lumbar spine Oropharyngeal dysphagia 06/04/2019 Overview (11/07/2024): [facility] [employer] ground/thin Osteoarthritis 06/04/2019 Overview (11/07/2024): Spine, Right Hip, Knees Seizure disorder ([facility] V24, [facility] V28) 05/20 Vitamin D deficiency 06/04/2019 Cerebral palsy ([facility] V24, [facility] V28) 2011 Osteoporosis 06/01/2012 Intellectual disability 11/24/2006 Immunizations Name Administration Dates Next Due Hepatitis B ([id number]-[id number] , Recombivax HB-Adult) 19yo and older 05/05/2014,01/07/2014,11/04/2013,2012 Influenza Quadravalent, MDCK , 0.5ml, preservative free (Flucelvax) 6mo and older 09/05/2019 Influenza Quadravalent, MDCK , 0.5ml, with preservative (Flucelvax) 6mo and older 11/16/2017 Influenza trivalent, 0.5mL, preservative free (Fluarix; FluLaval; Fluzone) ages 6mo and older (Afluria) 3 years and older 10/04/2015 Influenza trivalent, with preservative (Fluzone; Afluria) 6mo and older 11/28/2018,11/22/2017,10/01/2016,2013,09/12/2013 Influenza, Unspecified 09/07/2021 [employer] SARS-CoV-2 COVID-19, mRNA, LNP-S, preservative free 10/10/2021 Tdap Tetanus diptheria acell ular pertussis (Boostrix; Adacel) 7yo and older 04/14/2017,03/08/2013 Surgical History Surgery Date Site/Laterality Comments BACK SURGERY PROCEDURE: HISTORICAL BACK SURGERY; COMMENT: Spinal Fusion, Spinal kamila lower thoracic spine through L2 vertebrae FOOT SURGERY Right PROCEDURE: HISTORICAL FOOT SURGERY OTHER SURGICAL HISTORY PROCEDURE: [place] UNLISTED PROCEDURE VESTIBULE MOUTH OTHER SURGICAL HISTORY Right PROCEDURE: [place] UNLISTED PROCEDURE PELVIS/HIP JOINT; COMMENT: Femoral head neck screw continuous w/ lateral femoral shaft cortical plate Medical History Medical History Date Comments Cerebral palsy ([facility] V24, [facility] V28) DX:Cerebral palsy (HCC) Seizure disorder ([facility] V2 4, [facility] V28) DX:Seizure disorder (HCC) Intellectual disability DX:Intel lectual disability 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) (CMS/HCC V24) DX:SIADH (syndrome of inappr opriate ADH production) ([facility]) Constipation DX:Constipation Abdominal pain DX:Abdominal inez n Rectal pain DX:Rectal pain Rectal bleeding DX:Rectal bleedi ng Family History Medical History Relation Name Comments Bladder Cancer Father Diabetes, Hyp ertension, Hyperlipidemia Breast cancer Mother Relation Name Status Comments Brother Alive Father Alive Mother Sister Alive Social History Tobacco Use Types Packs/Day Years Used Date Smoking Tobacco: Never Smokeless Tobacco: Never Alcohol Use Standard Drinks/Week Comments No 0 (1 standard drink = 0.6 oz pur e alcohol) Sex and Gender Information Value Date Recorded Sex Assigned at Not on file Legal Sex Male 1:21 PM EST Gender Identity Not on file Sexual Orientation Not on file Obstetrics History Plan of Treatment Health Maintenance Due Date Last Done Comments Pneumococcal Vaccine: 50+ Years (1 of 1 - PCV) 2021 Zoster Vaccines (1 of 2) 2021 Colorectal Cancer Screening: Stool Based Tests (FOBT/FIT) 10/18/2022 Depression Screening 10/18/2022 HIV Screening 10/18/2022 Hepatitis C Screening 10/18/2022 Social Influencers of Health Screening 10/18/2022 COVID-19 Vaccine ( season) 2024 10/10/2021, 12/29/2020, 12/08/2020 Influenza Vaccine (Season Ended) 2025 09/07/2021, 09/05/2019, 11/28/2018, Additional history exists Cholesterol Screening (Lipid Panel) 02/22/2026 02/22/2021 DTaP,Tdap,and Td Vaccines (3 - Td or Tdap) 04/14/2027 04/14/2017, 03/08/2013 Osteoporosis Screening (Bone Density Screening) 11/07/2029 11/07/2019 Hepatitis B Vaccines Completed 05/05/2014, 01/07/2014, 11/04/2013, Additional history exists HIB Vaccines Aged Out No longer eligi ble based on patient's age to complete this topic HPV Vaccines Aged Out No longer eligi ble based on patient's age to complete this topic Hepatitis A Vaccines Aged Out No long er eligible based on patient's age to complete this topic IPV Vaccines Aged Out No longer eligi ble based on patient's age to complete this topic MMR Vaccines Aged Out No longer eligi ble based on patient's age to complete this topic Meningococcal ACWY Vaccine Aged Out N o longer eligible based on patient's age to complete this topic Meningococcal B Vaccine Aged Out No l onger eligible based on patient's age to complete this topic Pneumococcal Vaccine: Pediatrics (0 to 5 Years) and At-Risk Patients (6 to 64 Years) Aged Out No longer eligible based on patient's age to complete this topic RSV Immunization Patients Under 20 months Aged Out No longer eligible based on patient's age to complete this topic Varicella Vaccines Aged Out No longer eligible based on patient's age to complete this topic Procedures Procedure Name Priority Date/Time Associated Diagnosis Comments LIPID PANEL Routine 02/22/2021 DXA BONE DENSITY STUDY 1+ SITS AXIAL SKEL Routine 11/07/2019 3:55 PM EST Encounter for immunization from Last 3 Months or Most Recently Relevant to Health Maintenance Results * (ABNORMAL) Lipid panel (02/22/2021) LDL/HDL Ratio 3 0 - 4 Triglycerides 75 0 - 150 mg/dL Cholesterol 213(A) 0 - 200 mg/dL HDL 69 >=40 mg/dL LDL Cholesterol 129(A) 0 - 100 mg/dL Blood Venous blood specimen / Unknown Historical Provider LAB BLOOD ORDERABLES Belinda l Result * DXA BONE DENSITY STUDY 1+ SITS AXIAL SKEL (11/07/2019 3:55 PM EST) Anatomical Region Laterality Modality Bone Densitometr y 09/05/2019 4:13 PM EDT Narrative 11/07/2019 6:10 PM EST BONE DENSITY SCAN (DEXA): FINDINGS: Lumbar Spine, L1 and L2 were excluded due to spinal hardware. T-score is 0.1. ?? (SD relative to 20-29 y/o adult) Z-score is 0.4. ??(SD relative to age matched peers) This is considered normal by WHO criteria. Left Hip T-score is -3.0 in the femoral neck. Z-score is -2.3 in the femoral neck. This is considered osteoporosis by WHO criteria. Comparison exam(s): None. IMPRESSION: IMPRESSION: ?? Osteoporosis by WHO criteria. FRAX scores not able to be calculated. The [employer] Department of Internal Medicine recommends using National Osteoporosis Foundation (NOF) guidelines in treatment decisions related to osteoporosis. NOF guidelines suggest considering treatment for postmenopausal women and men aged 50 or older presenting with the following: History of hip or vertebral fracture. T-score = -2.5 (DXA) at the femoral neck, total hip, or spine, after appropriate evaluation to exclude secondary causes. Low bone mass (T-score between -1.0 and -2.5 at the femoral neck or spine) AND a 10-year probability of a hip fracture = 3% OR a 10-year probability of a major osteoporosis-related fracture = 20% based on the [place]-adapted WHO algorithm Please note that all treatment decisions require clinical judgment and consideration of individual patient factors, including patient preferences, co-morbidities, previous drug use, risk factors not captured in the FRAX model (e.g., frailty, falls, vitamin D deficiency, increased bone turnover, interval significant decline in bone density) and possible under- or over-estimation of fracture risk by FRAX. Optional alternative screening schedule based on roxanne Oswald., [facility] December 08, 2011 for patients with osteopenia (based on hip BMD T-score) is as follows: * ??advanced osteopenia (T scores -2.00 to -2.49), BMD testing every year * ??moderate osteopenia (T scores -1.50 to -1.99), BMD testing every 5 years mild osteopenia or normal BMD (T scores -1.50 and higher), BMD testing every 15 years Procedure Note Daya Villegas MD - 11/08/2022 BONE DENSITY SCAN (DEXA): FINDINGS: Lumbar Spine, L1 and L2 were excluded due to spinal hardware. T-score is 0.1. (SD relative to 20-29 y/o adult) Z-score is 0.4. (SD relative to age matched peers) This is considered normal by WHO criteria. Left Hip T-score is -3.0 in the femoral neck. Z-score is -2.3 in the femoral neck. This is considered osteoporosis by WHO criteria. Comparison exam(s): None. IMPRESSION: IMPRESSION: Osteoporosis by WHO criteria. FRAX scores not able to be calculated. The [employer] Department of Internal Medicine recommendsusing National Osteoporosis Foundation (NOF) guidelines in treatment decisions related toosteoporosis. NOF guidelines suggest considering treatment for postmenopausal women and menaged 50 or older presenting with the following: History of hip or vertebral fracture. T-score = -2.5 (DXA) at the femoral neck, total hip, or spine, afterappropriate evaluation to exclude secondary causes. Low bone mass (T-score between -1.0 and -2.5 at the femoral neck or spine)AND a 10-year probability of a hip fracture = 3% OR a 10-year probability of a majorosteoporosis-related fracture = 20% based on the [place]-adapted WHO algorithm Please note that all treatment decisions require clinical judgment andconsideration of individual patient factors, including patient preferences, co- morbidities,previous drug use, risk factors not captured in the FRAX model (e.g., frailty, falls, vitaminD deficiency, increased bone turnover, interval significant decline in bone density) andpossible under- or over-estimation of fracture risk by FRAX. Optional alternative screening schedule based on anne Oswald al., [facility] for patients with osteopenia (based on hip BMD T-score) is as follows: * advanced osteopenia (T scores -2.00 to -2.49), BMD testing every year * moderate osteopenia (T scores -1.50 to -1.99), BMD testing every 5years mild osteopenia or normal BMD (T scores -1.50 and higher), BMD testingevery 15 years us Farncine Lilly MD IMG DXA PROCEDURES Final Res ult from Last 3 Months or Most Recently Relevant to Health Maintenance
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
== END 2025-03-18 11:40 | disposition home or self-care (01) ==
LOC: HO.HUSH 10:41
PROVIDERS: PCP Internal Medicine; Visit Provider Urology
DX: N40.1 Benign prostatic hyperplasia with lower urinary tract symptoms (principal); N13.8 Other obstructive and reflux uropathy; Z13.9 Encounter for screening, unspecified
CPT/HCPCS: 99213; G2211

== ENCOUNTER → 2025-03-18 10:41 | Outpatient (BNVA) | payer MEDICARE, MEDICAID, SELFPAY | PROVIDERS: PCP Internal Medicine; Visit Provider Urology | DX: N40.1 Benign prostatic hyperplasia with lower urinary tract symptoms (principal); N13.8 Other obstructive and reflux uropathy | CPT/HCPCS: 51798; 81003; 99212 ==

== ENCOUNTER 2025-09-03 08:36 | Outpatient (AMB) | payer MEDICARE, MEDICAID, SELFPAY ==
--- NOTE | 2025-09-03 09:04 | MHC.OFFVIS ---
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 He used to see Dr. Venegas. He is presenting with the concern of an upper limb tremor, notable for affecting the left arm with episodic intensity. The tremor has been described as varying in frequency, with some days showing increased shaking than others. Management includes the use of Tremadon, taken as 375 mg in the morning and 500 mg at night, in addition to Depakote administered twice daily in 250 mg dosages, and the use of Tizanidine. Previous laboratory assessments showed a B12 level of 684, with follow-up labs planned to gauge current treatment efficacy. 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 - Musculoskeletal: Reports use of Tizanidine for muscle elasticity. - Current Medications: Reports use of Tremadon and Depakote for tremor management. Physical Exam Neuro Other: He is alert and awake talking slowly in somewhat loudly. He asked few questions and was following one-step commands. He was walking and a broad-based slow paced gait with buccal knees using a walker. No significant tremor was noted Assessment & Plan Assessment & Plan (1) Chronic static encephalopathy: Code(s): G93.49 - Other encephalopathy Category: Medical (2) Seizure disorder: Code(s): G40.909 - Epilepsy, unspecified, not intractable, without status epilepticus Category: Medical Plan 55 years old man with chronic static encephalopathy resulting in igiskpyg-hb-ebqlig physical and intellectual disability and seizure disorder. He used to see Dr. Venegas and has been maintained on Depakote and primidone for seizure control and probably also tremor control. Levels were requested and medicines for now were continued. Orders: Orders Phenobarbital Today G40.909 - Epilepsy, unspecified, not intractable, without status epilepticus Liver Panel Today G40.909 - Epilepsy, unspecified, not intractable, without status epilepticus Valproate Today G40.909 - Epilepsy, unspecified, not intractable, without status epilepticus Medications: New divalproex 750 mg (3 x 250 mg) PO BID 540 tabs 1RF Changed From primidone (Mysoline) 250 mg PO BID To primidone (Mysoline) 500 mg (2 x 250 mg) PO BEDTIME 180 tabs 1RF Coding Level of Care Code Est Pt Level 4 (94740) Diagnoses Chronic static encephalopathy G93.49 Seizure disorder G40.909
--- OUTSIDE RECORDS SUMMARY | 2025-09-03 09:04 | XMS_ITS | Clinical Summary ---
Author Organization [facility] Address [address] [place] [address] Care Team Providers Care Supervisor [employer] Name Role Phone Yousif Barajas DO Primary Care Provider [phone] Allergies Active Allergy Reactions Criticality Noted Date Comments Lorazepam Rash Medium 06/14/2025 Medications BIOTIN ORAL Take 2 drops by mouth. As directed. Active lancets (FREESTYLE) 28 gauge every 7 days. USE TO TEST BLOOD SUGAR WEEKLY Active loperamide HCl (IMODIUM A-D ORAL) Active KETOCONAZOLE ORAL Active ammonium lactate (LAC-HYDRIN TP) Acti ve LACTULOSE ORAL 2 (two) times a day. Active naproxen (NAPROSYN) 500 MG tablet Take 1 (one) tablet (500 mg total) by mouth 2 (two) times a day as needed. Active alclometasone (ACLOVATE) 0.05 % cream Apply 1 application topically 2 (two) times a day. Active alendronate (FOSAMAX) 70 MG tablet Take 1 (one) tablet (70 mg total) by mouth every 7 days. Active ARIPiprazole (ABILIFY) 5 MG tablet Take 2 (two) tablets (10 mg total) by mouth 2 (two) times a day. Active atorvastatin (LIPITOR) 40 MG tablet Take 1 (one) tablet (40 mg total) by mouth once daily. Active atorvastatin (LIPITOR) 10 MG tablet Take 1 (one) tablet (10 mg total) by mouth once daily. Active clonazePAM (KLONOPIN) 0.5 MG tablet Take 1 (one) tablet (0.5 mg total) by mouth once daily. Active divalproex (DEPAKOTE ER) 250 MG 24 hr tablet Take 3 (three) tablets (750 mg total) by mouth 2 (two) times a day. Active finasteride (PROSCAR) 5 mg tablet Take 1 (one) tablet (5 mg total) by mouth every evening. Active nystatin (MYCOSTATIN) 100,000 unit/gram cream Apply 1 application topically 2 (two) times a day. Active OXcarbazepine (TRILEPTAL) 300 MG tablet Take 1 (one) tablet (300 mg total) by mouth 2 (two) times a day. Active primidone (MYSOLINE) 250 MG tablet Take 1 (one) tablet (250 mg total) by mouth once daily. Active tamsulosin (FLOMAX) 0.4 mg capsule Take 1 (one) capsule (0.4 mg total) by mouth at bedtime. Active tiZANidine (ZANAFLEX) 2 MG capsule Take 1 (one) capsule (2 mg total) by mouth once daily. Active tiZANidine (ZANAFLEX) 4 MG tablet Take 1 (one) tablet (4 mg total) by mouth 3 (three) times a day. Active traZODone (DESYREL) 50 MG tablet Take 1 (one) tablet (50 mg total) by mouth once daily. Active magnesium oxide (MAG-OX) 400 mg (241.3 mg magnesium) tablet Take 1 (one) tablet (400 mg total) by mouth once daily. Active ketoconazole (NIZORAL) 2 % shampoo Apply topically once a week. Active cephalexin (KEFLEX) 500 MG capsule Take 1 (one) capsule (500 mg total) by mouth 4 (four) times a day. For 10 days Active Active Problems Problem Noted Date Diagnosed Date Epilepsy 06/14/2025 Fatigue 06/14/2025 Hyperlipidemia 06/14/2025 Hypo-osmolality and hyponatremia 06/14/2025 Hypomagnesemia 06/14/2025 Vitamin D deficiency 06/14/2025 Hypocalcemia 05/07/2021 Abnormal glucose level 08/04/2020 Osteoporosis 08/04/2020 Abnormal blood chemistry level 07/20/2018 Hypoglycemia 01/16/2018 Hyponatremia 01/16/2018 Encounters Date Type Department Care Team Description 08/08/2025 1:00 PM EDT Office Visit [facility] [address] [place] [phone] Nasrin Torres MD Hyponatremia (Primary Dx); Osteoporosis without current pathological fracture, unspecified osteoporosis type; Hypoglycemia from Last 3 Months Family History Medical History Relation Name Comments Bladder cancer Father Relation Name Status Comments Father Social History Tobacco Use Types Packs/Day Years Used Date Smoking Tobacco: Never Smokeless Tobacco: Never Tobacco Cessation:Counseling Given: Not Answered Alcohol Use Standard Drinks/Week Comments Never 0 (1 standard drink = 0.6 oz pur e alcohol) Sex and Gender Information Value Date Recorded Sex Assigned at Not on file Legal Sex Male 5:12 PM EDT Gender Identity Not on file Sexual Orientation Not on file Last Filed Vital Signs Vital Sign Reading Time Taken Comments Blood Pressure - - Pulse - - Temperature - - Respiratory Rate - - Oxygen Saturation - - Inhaled Oxygen Concentration - - Weight - - Height 172.7 cm (5' 8 ) 05/06/2024 7:04 PM EDT Body Mass Index - - Plan of Treatment Health Maintenance Due Date Last Done Comments Bone Density (DXA) Scan 1971 HEPATITIS C SCREENING 1988 COLONOSCOPY (CRC) 2016 COLORECTAL CANCER SCREENING (CRC) 2016 CT COLONOGRAPHY (CRC) 2016 FIT-DNA (CRC) 2016 FIT/iFOBT (CRC) 2016 SIGMOIDOSCOPY (CRC) 2016 PNEUMOCOCCAL VACCINE: 50+ YEARS (1 of 1 - PCV) 2021 ZOSTER VACCINE (1 of 2) 2021 INFLUENZA VACCINE (#1) 2025 , 09/05/2019, 11/28/2018, Additional history exists COVID-19 IMMUNIZATION (2 - 2024- season) 2025 10/10/2021 DTAP/TDAP/TD VACCINES (3 - Td or Tdap) 04/14/2027 04/14/2017, 03/08/2013 RSV IMMUNIZATION (1 - 1-dose 75+ series) 2046 IPV VACCINES Aged Out No longer eligi ble based on patient's age to complete this topic MENINGOCOCCAL B VACCINE Aged Out No l onger eligible based on patient's age to complete this topic Insurance [facility] MEDICARE PART A AND B Care Teams Supervisor [employer] Relationship Specialty Start Date End Date Yousif Barajas DO [address] [place] [address] PCP - General 03/20/25
--- OUTSIDE RECORDS SUMMARY | 2025-09-03 09:04 | XMS_ITS | Clinical Summary ---
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) ([facility] V24) 11/07/2024 COVID-19 virus detected 01/29/2021 Hypercholesteremia 09/03/2019 Hearing loss 06/04/2019 Levoscoliosis 06/04/2019 Overview (11/07/2024): Mid lumbar spine Oropharyngeal dysphagia 06/04/2019 Overview (11/07/2024): 2017 [facility] CERTIFIED PHARMACY TECHNICIAN ground/thin Osteoarthritis 06/04/2019 Overview (11/07/2024): Spine, Right Hip, Knees Seizure disorder ([facility] V24, [facility] V28) 05/20 Vitamin D deficiency 06/04/2019 Cerebral palsy ([facility] V24, [facility] V28) 2011 Osteoporosis 06/01/2012 Intellectual disability 11/24/2006 Immunizations Immunization Administration Dates Next Due Hepatitis B (Cemayev-G-Mgmdn , Recombivax HB-Adult) 19yo and older 05/05/2014,01/07/2014,11/04/2013,2012 Influenza Quadravalent, MDCK , 0.5ml, preservative free (Flucelvax) 6mo and older 09/05/2019 Influenza Quadravalent, MDCK , 0.5ml, with preservative (Flucelvax) 6mo and older 11/16/2017 Influenza trivalent, 0.5mL, preservative free (Fluarix; FluLaval; Fluzone) ages 6mo and older (Afluria) 3 years and older 10/04/2015 Influenza trivalent, with preservative (Fluzone; Afluria) 6mo and older 11/28/2018,11/22/2017,10/01/2016,2013,09/12/2013 Influenza, Unspecified 09/07/2021 hiogi SARS-CoV-2 COVID-19, mRNA, LNP-S, preservative free 10/10/2021 Tdap Tetanus diptheria acell ular pertussis (Boostrix; Adacel) 7yo and older 04/14/2017,03/08/2013 Surgical History Surgery Date Site/Laterality Comments BACK SURGERY PROCEDURE: HISTORICAL BACK SURGERY; COMMENT: Spinal Fusion, Spinal kamila lower thoracic spine through L2 vertebrae FOOT SURGERY Right PROCEDURE: HISTORICAL FOOT SURGERY OTHER SURGICAL HISTORY PROCEDURE: AL UNLISTED PROCEDURE VESTIBULE MOUTH OTHER SURGICAL HISTORY Right PROCEDURE: AL UNLISTED PROCEDURE PELVIS/HIP JOINT; COMMENT: Femoral head neck screw continuous w/ lateral femoral shaft cortical plate Medical History Medical History Date Comments Cerebral palsy ([facility] V24, [facility] V28) DX:Cerebral palsy (HCC) Seizure disorder ([facility] V2 4, [facility] V28) DX:Seizure disorder (HCC) Intellectual disability DX:Intel lectual disability 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) (CMS/HCC V24) DX:SIADH (syndrome of inappr opriate ADH production) ([facility]) Constipation DX:Constipation Abdominal pain DX:Abdominal inez [...] Cancer Screening: Stool Based Tests (FOBT/FIT) 10/18/2022 HIV Screening 10/18/2022 Hepatitis C Screening 10/18/2022 Social Influencers of Health Screening 10/18/2022 Depression Screening 11/20/2024 COVID-19 Vaccine ( season) 2025 10/10/2021, 12/29/2020, 12/08/2020 Influenza Vaccine (#1) 2025 , 09/05/2019, 11/28/2018, Additional history exists Cholesterol Screening (Lipid Panel) 02/22/2026 02/22/2021 DTaP,Tdap,and Td Vaccines (3 - Td or Tdap) 04/14/2027 04/14/2017, 03/08/2013 Osteoporosis Screening (Bone Density Screening) 11/07/2029 11/07/2019 RSV Immunization Adult Patients (1 - 1-dose 75+ series) 2046 Hepatitis B Vaccines Completed 05/05/2014, 01/07/2014, 11/04/2013, [...] mg/dL Blood Venous blood specimen / Unknown [facility] Provider LAB BLOOD ORDERABLES Belinda l Result [...] scores not able to be calculated. The [facility] Department of Internal Medicine recommends using National [...] alternative screening schedule based on roxanne Oswald., [facility] December 08, 2011 for patients with [...] scores not able to be calculated. The [facility] Department of Internal Medicine recommendsusing National Osteoporosis [...] screening schedule based on anne Oswald al., NEJMJanuary 2011 for patients with osteopenia (based on hip BMD T-score) is as follows: * advanced osteopenia (T scores -2.00 to -2.49), BMD testing every year * moderate osteopenia (T scores -1.50 to -1.99), BMD testing every 5years mild osteopenia or normal BMD (T scores -1.50 and higher), BMD testingevery 15 years us Francine Lilly MD IM DXA PROCEDURES Final Res ult from Last 3 Months or Most Recently Relevant to Health Maintenance
== END 2025-09-03 09:21 | disposition home or self-care (01) ==
LOC: HO.HSM 08:37
PROVIDERS: PCP Internal Medicine; Referring Provider Internal Medicine; Visit Provider Psychiatry & Neurology Neurology
DX: G93.49 Other encephalopathy (principal); G40.909 Epilepsy, unspecified, not intractable, without status epilepticus
CPT/HCPCS: 99214

== ENCOUNTER 2025-09-03 08:36 | Outpatient (REF) | payer MEDICARE, MEDICAID, SELFPAY ==
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
[2025-09-03 11:18] LABS: Alanine Aminotransferase 17 U/L (0-40); Albumin Level 4.0 g/dL (3.5-5.0); Alkaline Phosphatase 68 U/L (39-117); Aspartate Amino Transferase 25 U/L (5-37); Total Protein 6.9 g/dL (6.5-8.0)
== END 2025-09-03 08:37 | disposition home or self-care (01) ==
LOC: HO.LAB 08:36
PROVIDERS: Absent Provider Urology; PCP Internal Medicine; Referring Provider Internal Medicine; Visit Provider Psychiatry & Neurology Neurology
DX: G40.909 Epilepsy, unspecified, not intractable, without status epilepticus (principal); G93.49 Other encephalopathy; Z79.899 Other long term (current) drug therapy
CPT/HCPCS: 36415; 80076; 80164; 80184; 99212

== ENCOUNTER 2025-09-13 07:58 | Outpatient (REF) | payer MEDICARE, MEDICAID, SELFPAY ==
--- OUTSIDE RECORDS SUMMARY | 2025-09-13 08:03 | XMS_ITS ---
Author Name [facility] Organization Unknown History of Medication Use Medication Directions Dispensed Refills Start Date End Date Stat alclometasone (ACLOVATE) 0.05 % cream Apply 1 application topically 2 (two) times a day. active alendronate (FOSAMAX) 70 MG tablet Take 1 (one) tablet (70 mg total) by mouth every 7 days. active ARIPiprazole (ABILIFY) 5 MG tablet Take 2 (two) tablets (10 mg total) by mouth 2 (two) times a day. active atorvastatin (LIPITOR) 10 MG tablet Take 1 (one) tablet (10 mg total) by mouth once daily. active atorvastatin (LIPITOR) 40 MG tablet Take 1 (one) tablet (40 mg total) by mouth once daily. active BIOTIN ORAL Take 2 drops by mouth. As directed. active cephalexin (KEFLEX) 500 MG capsule Take 1 (one) capsule (500 mg total) by mouth 4 (four) times a day. For 10 days active clonazePAM (KLONOPIN) 0.5 MG tablet Take 1 (one) tablet (0.5 mg total) by mouth once daily. active divalproex (DEPAKOTE ER) 250 MG 24 hr tablet Take 3 (three) tablets (750 mg total) by mouth 2 (two) times a day. active finasteride (PROSCAR) 5 mg tablet Take 1 (one) tablet (5 mg total) by mouth every evening. active ketoconazole (NIZORAL) 2 % shampoo Apply topically once a week. active loperamide HCl (IMODIUM A-D ORAL) active magnesium oxide (MAG-OX) 400 mg (241.3 mg magnesium) tablet Take 1 (one) tablet (400 mg total) by mouth once daily. active naproxen (NAPROSYN) 500 MG tablet Take 1 (one) tablet (500 mg total) by mouth 2 (two) times a day as needed. active nystatin (MYCOSTATIN) 100,000 unit/gram cream Apply 1 application topically 2 (two) times a day. active OXcarbazepine (TRILEPTAL) 300 MG tablet Take 1 (one) tablet (300 mg total) by mouth 2 (two) times a day. active primidone (MYSOLINE) 250 MG tablet Take 1 (one) tablet (250 mg total) by mouth once daily. active tamsulosin (FLOMAX) 0.4 mg capsule Take 1 (one) capsule (0.4 mg total) by mouth at bedtime. active tiZANidine (ZANAFLEX) 2 MG capsule Take 1 (one) capsule (2 mg total) by mouth once daily. active tiZANidine (ZANAFLEX) 4 MG tablet Take 1 (one) tablet (4 mg total) by mouth 3 (three) times a day. active traZODone (DESYREL) 50 MG tablet Take 1 (one) tablet (50 mg total) by mouth once daily. active Allergies Allergen Reaction Severity Comment Documented Date Source Statu s LORAZEPAM RASH 06/14/2025 [facility] active Problems Problem Status Onset Date Problem Type Date of Resoluti on Source Epilepsy active 2025-06-14 ProblemAct [facility] Hypocalcemia active 2021-05-07 ProblemAct [facility] Osteoporosis active 2020-08-04 ProblemAct [facility] Hyperlipidemia active 2025-06-14 ProblemAct [facility] Hypo-osmolality and hyponatremia active 2025-06-[address] [facility] Abnormal blood chemistry level active 2018-07-[address] [facility] Fatigue active 2025-06-14 ProblemAct [facility] Hypomagnesemia active 2025-06-14 ProblemAct [facility] Abnormal glucose level active 2020-08-[address] [facility] Vitamin D deficiency active 2025-06-[address] [facility] Hypoglycemia active 2018-01-16 ProblemAct [facility]
[2025-09-13 09:07] LABS: Appearance Urine Clear; Glucose Urine UA Negative (Negative); PH 7.0 (5.0-9.0); Specific Gravity - Urine 1.020 (1.005-1.025); UMIC TRIGGER UA YES
[2025-09-13 10:06] LABS: Prostate Specific Antigen 0.43 ng/mL (<0.05-4.0)
== END 2025-09-13 07:59 | disposition home or self-care (01) ==
LOC: HO.LAB 07:58
PROVIDERS: PCP Internal Medicine; Visit Provider Urology
DX: N40.1 Benign prostatic hyperplasia with lower urinary tract symptoms (principal); N13.8 Other obstructive and reflux uropathy; R31.0 Gross hematuria; Z12.5 Encounter for screening for malignant neoplasm of prostate
CPT/HCPCS: 36415; 81001; 84153; 87086

== ENCOUNTER 2025-09-17 09:55 | Outpatient (AMB) | payer MEDICARE, MEDICAID, SELFPAY ==
--- NOTE | 2025-09-17 10:33 | MHC.OFFVIS ---
Intake Visit Reasons: 6m follow up Intake Note: Patient is Present for Follow Up Urology Medication: Tamsulosin, Finasteride Antibiotic Allergies: None Blood Thinners: None Currently on antibiotic Amoxicillin for UTI. Patient has 2 pills left of antibiotic Last PVR:0ml Todays PVR: Environmental Health And Safety Manager Required: No Allergies lorazepam (From ATIVAN) Allergy (Unknown, Verified 09/17/25 10:42) RASH HPI Comments Details: Corby is a pleasant male. He is a [place]. He is here for the following urologic conditions - gross hematuria - lower urinary tract symptoms - weak stream and frequent urination Per report has had difficulty with urination Has been on combination therapy Weakness of stream Enlarged PVR Discussed prostate procedure Given the male pattern baldness would recommend GreenLight laser incision versus prostate enucleation Prescriptions refilled through [facility] Lower urinary tract symptoms Improved with medications Last PVR 0 Remains on combination therapy with finasteride and tamsulosin Timed voiding Q 3 that is effective Gross hematuria Presentation emergency room - May 2021 In [facility] Imaging - 01/10 CT scan normal Initial presentation with nocturia and noted to have frequent urination Cystoscopy - 07/10 [facility] Medical History 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 Psoriasis Depressive disorder Mood disorder Generalized anxiety disorder Anxiety and depression Vitamin D deficiency SIADH (syndrome of inappropriate ADH production) Hyperlipemia Hypernatremia Scoliosis Osteoporosis Osteoarthritis Arthritis Dysphagia Constipation Seizure disorder Cerebral palsy Surgical History History of spinal fusion Social History Alcohol intake: never Review of Systems Const Denies chills and Denies fever(s) Card Reports no additional complaints and Denies syncope Resp Denies cough GI Denies abdominal pain and Denies heartburn Reports as per HPI and Denies change in libido Neuro Denies syncope Psych Denies change in libido Endo Denies change in libido Physical Exam Const General: cooperative, healthy appearing, comfortable and no acute distress Orientation/consciousness: patient oriented x3 HEENT Face and sinus: Yes normal facial exam Mouth: moist mucous membranes Neck Neck: Yes normal visual inspection, Yes full ROM and Yes trachea midline Chest Chest palpation & inspection: normal inspection of the chest Resp Effort & Inspection: normal respiratory effort, able to speak in complete sentences and no respiratory distress GI Inspection: Yes normal to inspection Back/Spine/Pelvis Cervical Spine: normal cervical lordosis Thoracic/Lumbar Spine: thoracic and lumbar spine normal to inspection Skin General skin exam: no rashes or lesions noted Neuro General: patient oriented x3, gait normal, tone normal and moves all extremities Extrem General: Yes normal to inspection and Yes capillary refill normal Assessment & Plan Assessment & Plan (1) Gross hematuria: Code(s): R31.0 - Gross hematuria Category: Medical (2) BPH w urinary obs/LUTS: Code(s): N40.1 - Benign prostatic hyperplasia with lower urinary tract symptoms; N13.8 - Other obstructive and reflux uropathy Category: Medical Plan We discussed the nature of the decision and reasonable options for performing a prostate intervention. Interventions include TURP, GreenLight laser enucleation of the prostate, GreenLight laser ablation of the prostate, transurethral incision of the prostate, and I-Tend prostate procedure. Options such as medical therapy were discussed. The relative uncertainties and benefits related to each alternate procedure were adequately discussed. General surgical risks including, but not limited to, pain, bleeding, infection, myocardial infarction, pulmonary embolus, deep vein thrombosis and cerebrovascular accident which may result in further hospitalization were discussed. Full disclosure of the procedure as well as all major risks, benefits and complications were discussed including but not limited to damage to the urethra or bladder neck, recurrent BPH, retrograde ejaculation, bladder infection, urge, de deepti frequency, incomplete emptying, dysuria, remote chance of erectile dysfunction, epididymitis, and meatal stenosis. The success rate of the procedure was discussed. Success of the procedure in the short-term does not necessarily guarantee that long-term success will be maintained. Suitable follow up will need to be maintained. The patient showed understanding of discussion. An opportunity was provided for questions to be answered and wishes to proceed with the following procedure. - GreenLight laser prostatectomy Patient Instructions: This note is constructed using voice recognition software. While every effort has been made to ensure accuracy cloth picker errors may have been included. Imaging studies, laboratory and physical exam results were discussed and reviewed in detail. No major barriers to patient understanding were identified. An opportunity to ask questions regarding the treatment plan was provided. All questions were answered. The patient expressed understanding and agreement with the above treatment plan. The patient is aware they should contact our office by phone for worsening of their current condition or the appearance of new urologic symptoms. Compliance is encouraged with any medications and followup testing that is ordered. It is a privilege to participate in the urologic care of your patient. If you have any questions or concerns regarding treatment for the above conditions, or other urologic issues, please do not hesitate to contact me. The office telephone contact is [phone]. Sincerely, Dr Parish Kendall MD, [facility] - Urology Compassionate Specialist Care for the Genitourinary System Coding Level of Care Code Est Pt Level 4 (51449) Complex EM visit Add On G2211 Diagnoses Gross hematuria R31.0 BPH w urinary obs/LUTS N40.1; N13.8
--- OUTSIDE RECORDS SUMMARY | 2025-09-17 11:57 | XMS_ITS | Clinical Summary ---
Author Organization [facility] Address [address] [place] [address] Care Team Providers Care Loss Mitigation Specialist Name Role Phone Yousif Barajas DO Primary Care Provider [phone] Allergies Active Allergy Reactions Criticality Noted Date [...] Description 08/08/2025 1:00 PM EDT Office Visit [facility] Endocrinology [address] [place] [phone] Nasrin Torres MD Hyponatremia (Primary Dx); Osteoporosis [...] patient's age to complete this topic Insurance [facility] MEDICARE PART A AND B Care Teams Loss Mitigation Specialist Relationship Specialty Start Date End Date Yousif Barajas DO [address] [place] [address] PCP - General 03/20/25
--- OUTSIDE RECORDS SUMMARY | 2025-09-17 11:57 | XMS_ITS | Clinical Summary ---
Author Organization 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) ([facility] V24) 11/07/2024 COVID-19 virus detected 01/29/2021 Hypercholesteremia 09/03/2019 Hearing loss 06/04/2019 Levoscoliosis 06/04/2019 Overview (11/07/2024): Mid lumbar spine Oropharyngeal dysphagia 06/04/2019 Overview (11/07/2024): [facility] ground/thin Osteoarthritis 06/04/2019 Overview (11/07/2024): Spine, Right Hip, Knees Seizure disorder ([facility] V24, [facility] V28) 05/20 Vitamin D deficiency 06/04/2019 Cerebral palsy ([facility] V24, [facility] V28) 2011 Osteoporosis 06/01/2012 Intellectual disability 11/24/2006 Immunizations Immunization Administration Dates Next Due Hepatitis B (Reskkhg-C-Tbwax , Recombivax HB-Adult) 19yo and older 05/05/2014,01/07/2014,11/04/2013,2012 Influenza Quadravalent, MDCK , 0.5ml, preservative free (Flucelvax) 6mo and older 09/05/2019 Influenza Quadravalent, MDCK , 0.5ml, with preservative (Flucelvax) 6mo and older 11/16/2017 Influenza trivalent, 0.5mL, preservative free (Fluarix; FluLaval; Fluzone) ages 6mo and older (Afluria) 3 years and older 10/04/2015 Influenza trivalent, with preservative (Fluzone; Afluria) 6mo and older 11/28/2018,11/22/2017,10/01/2016,2013,09/12/2013 Influenza, Unspecified 09/07/2021 OMEGA MORGAN SARS-CoV-2 COVID-19, mRNA, LNP-S, preservative free 10/10/2021 Tdap Tetanus diptheria acell ular pertussis (Boostrix; Adacel) 7yo and older 04/14/2017,03/08/2013 Surgical History Surgery Date Site/Laterality Comments BACK SURGERY PROCEDURE: HISTORICAL BACK SURGERY; COMMENT: Spinal Fusion, Spinal kamila lower thoracic spine through L2 vertebrae FOOT SURGERY Right PROCEDURE: HISTORICAL FOOT SURGERY OTHER SURGICAL HISTORY PROCEDURE: WI UNLISTED PROCEDURE VESTIBULE MOUTH OTHER SURGICAL HISTORY Right PROCEDURE: WI UNLISTED PROCEDURE PELVIS/HIP JOINT; COMMENT: Femoral head neck screw continuous w/ lateral femoral shaft cortical plate Medical History Medical History Date Comments Cerebral palsy ([facility] V24, [facility] V28) DX:Cerebral palsy (HCC) Seizure disorder ([facility] V2 4, [facility] V28) DX:Seizure disorder (HCC) Intellectual disability DX:Intel [...] mg/dL Blood Venous blood specimen / Unknown [facility] Provider LAB BLOOD ORDERABLES Belinda l [...] scores not able to be calculated. The [facility] Department of Internal Medicine recommends using National [...] alternative screening schedule based on roxanne Oswald., [facility] December 08, 2011 for patients with osteopenia [...] scores not able to be calculated. The [facility] Department of Internal Medicine recommendsusing National Osteoporosis [...] higher), BMD testingevery 15 years us Francine Llily MD IM DXA PROCEDURES Final Res ult from Last 3 Months or Most Recently Relevant to Health Maintenance
== END 2025-09-17 11:20 | disposition home or self-care (01) ==
LOC: HO.HUSH 09:55
PROVIDERS: PCP Internal Medicine; Visit Provider Urology
DX: R31.0 Gross hematuria (principal); N40.1 Benign prostatic hyperplasia with lower urinary tract symptoms; N13.8 Other obstructive and reflux uropathy
CPT/HCPCS: 99214; G2211

== ENCOUNTER → 2025-09-17 09:55 | Outpatient (BNVA) | payer MEDICARE, MEDICAID, SELFPAY | PROVIDERS: PCP Internal Medicine; Visit Provider Urology | DX: R31.0 Gross hematuria (principal); N40.1 Benign prostatic hyperplasia with lower urinary tract symptoms; N13.8 Other obstructive and reflux uropathy | CPT/HCPCS: 99212 ==